=== PATIENT | male | born 1945 | race Caucasian/White ===

== ENCOUNTER → 2016-05-05 | Outpatient (CLI) | payer OTHER, BC ==
[~2016-05-05] MED LIST: ASPEC81 PO; B-COTAB53 PO; CALC-452 PO; CARV25TA2 PO; CILO100T PO; CLOP1TAB15 PO; COLE1TAB5 PO; DVN80 PO; HYG/25 PO; LSX20 PO; METF-384 PO; MULT1TAB18 PO; OMEP40CA PO; PANC6000 PO; PANT40TA PO; PRED1SUS3 OPL; RANI1TAB77 PO; SIMV20TA5 PO; VITAMIN D PO; VTMB12 PO
--- NOTE | 2016-05-05 15:02 | DIAGNOSTIC IMAGING REPORT ---
CT SCAN OF THE CHEST WITHOUT IV CONTRAST CLINICAL HISTORY: Pulmonary nodule. COMPARISON STUDY: Chest CT dated 11/04/2015. TECHNIQUE: CT scan of the thorax was performed from the thoracic inlet to the upper abdomen. Images are reviewed in the axial, sagittal, and coronal planes. IV contrast was not administered for this examination as per the referring clinician. CT DOSE: 281.37 mGycm FINDINGS: Thyroid: Imaged portions of the thyroid gland are normal in size and attenuation. Thoracic aorta: There is moderate atherosclerotic calcification of the thoracic aorta, which is normal in caliber and demonstrates standard 3-vessel arch anatomy. Heart: The heart is top normal in size and without pericardial effusion. The coronary arteries are densely calcified. The pulmonary trunk is normal in caliber. Lungs and pleural spaces: There is emphysema with biapical scarring. No airspace consolidation or pleural effusion is identified. There is a 7 mm focus of groundglass nodularity in the right middle lobe seen on image #179. This is more conspicuous than on the 11/04/2015 examination. No additional pulmonary nodule is seen. The trachea and central airways are clear. Mediastinum: There is no mediastinal lymphadenopathy. Radha: Not well assessed without IV contrast. Axillae: There is no axillary lymphadenopathy. Upper abdomen: There is a tiny hiatal hernia. Partially cholecystectomy clips are noted. Advanced atherosclerotic calcification is seen in the abdominal aorta. An aortic stent graft is partially visualized. Skeletal structures: The skeletal structures are osteopenic. Mild degenerative change is present throughout the thoracic spine. No lytic or blastic bony lesions are seen. A subcentimeter sclerotic focus in the body of T2 on image #41 is unchanged and likely represents a bone island. IMPRESSION: 1. Emphysema. 2. There is a 7 mm focus of groundglass nodularity in the right middle lobe, more conspicuous than on the 11/04/2015 examination. This may be on an inflammatory basis. Repeat chest CT in 6 months time is recommended for reassessment. 3. No additional pulmonary nodules are suspected. 4. No airspace consolidation or pleural effusion is identified. Electronically signed by: Zan Forte M.D. 05/05/2016 3:00 PM Dictated Date/Time: 05/05/2016 2:48 PM
== END | disposition home or self-care (01) ==
LOC: C.CTS 14:40
PROVIDERS: ATTEND Family Medicine
DX: R91.1 Solitary pulmonary nodule (principal); J43.9 Emphysema, unspecified

== ENCOUNTER → 2016-06-17 | Outpatient (CLI) | payer OTHER, BC ==
[2016-06-17 10:52] LABS: BASO % 0.5 %; BASO ABS # 0.03 K/uL (0-0.2); COMPLETE YES; EOS % 3.8 %; HEMATOCRIT 28.7 % (42-52); IG% 0.2 %; MEAN CELL VOLUME 88.9 fL (80-100); MEAN CORPUSCULAR HEMOGLOBIN 29.4 pg (25-34); MEAN CORPUSCULAR HGB CONC 33.1 g/dl (32-36); MEAN PLATELET VOLUME 10.1 fL (7.4-10.4); MONO % 10.5 %; PLATELET COUNT 263 K/uL (130-400); RED BLOOD COUNT 3.23 M/uL (4.7-6.1); WHITE BLOOD COUNT 6.36 K/uL (4.8-10.8)
== END | disposition home or self-care (01) ==
LOC: C.LABBC 09:06
PROVIDERS: ATTEND Family Medicine
DX: D64.9 Anemia, unspecified (principal)

== ENCOUNTER → 2016-07-20 | Outpatient (CLI) | payer OTHER, BC ==
[2016-07-20 11:15] LABS: BASO % 0.6 %; BASO ABS # 0.04 K/uL (0-0.2); COMPLETE YES; EOS % 4.7 %; HEMATOCRIT 29.3 % (42-52); IG% 0.2 %; LYMPH % 31.8 %; LYMPH ABS # 2.03 K/uL (1.2-3.4); MEAN CELL VOLUME 86.2 fL (80-100); MEAN CORPUSCULAR HEMOGLOBIN 28.5 pg (25-34); MEAN CORPUSCULAR HGB CONC 33.1 g/dl (32-36); MEAN PLATELET VOLUME 10.1 fL (7.4-10.4); MONO % 12.2 %; NEUT % 50.5 %; PLATELET COUNT 251 K/uL (130-400); WHITE BLOOD COUNT 6.38 K/uL (4.8-10.8)
[2016-07-20 11:34] LABS: FERRITIN 13.1 ng/ml (8.0-388.0)
== END | disposition home or self-care (01) ==
LOC: C.LABBC 08:40
PROVIDERS: ATTEND Family Medicine
DX: D64.9 Anemia, unspecified (principal)

== ENCOUNTER → 2016-08-05 | Day surgery (SDC) | payer OTHER, BC ==
[2016-08-03 10:25] VITALS: Ht 177.8 cm; Wt 74.1 kg
[~2016-08-05] VITALS: Ht 177.8 cm; Wt 74.1 kg
[~2016-08-05] MED LIST changes: +ATROPINE SULFATE 0.1 MG/ML 5ML SYR IV PRN; -CALC-452 PO; -CILO100T PO; +EpHEDrine SULFATE INJ 50 MG/ML AMP IV PRN; +LIDOCAINE HCL 2% 2 ML VIAL (20MG/ML) ONE; -LSX20 PO; +MIDAZOLAM HCL 1 MG/ML 2ML VIAL ONE; -OMEP40CA PO; +ONDANSETRON INJ 2 MG/ML 2 ML VIAL ONE; -PANC6000 PO; -PRED1SUS3 OPL; +PROPOFOL IV EMULSION 10 MG/ML 20 ML VIAL IV ONE; +SODIUM CHLORIDE 0.9% 500ML 500 ML IV ONE; -VTMB12 PO
--- NOTE | 2016-08-05 09:02 | Endo History and Physical ---
History & Physical Date of Service: Aug 05, 2016. Chief Complaint: Anemia and Manley's Esophagus Referring Physician: Frandy Hughes History of Present Illness 70 yo CM who presents for EGD and Colonoscopy secondary to anemia and Manley's Esophagus. Past Medical History Diabetes, Reflux, High Cholesterol, Heart Disease, Hypertension, COPD Past Surgical History Hx Cardiac Surgery: Yes (AAA REPAIR) Hx Internal Defibrillator: No Hx Pacemaker: No Hx Abdominal Surgery: Yes (CLAUDIA) Hx of Implantable Prosthesis: No Hx Post-Op Nausea and Vomiting: No Hx Cancer Surgery: No Hx Thoracic Surgery: No Hx Orthopedic: Yes (LT LEG SURGERY WITH CHAS S/P FRACTURES) Hx Urinary Tract Surgery: No Family History None Social History Smoking Status: Current Every Day Smoker Hx Substance Use: No Hx Alcohol Use: Yes (A COUPLE GLASSES WINE/NIGHT) Allergies Coded Allergies: No Known Allergies (Verified , 08/05/16) Current Medications Reported Home Medications Medications Dose Route/Sig Max Daily Dose Days Date Category Protonix (Pantoprazole Sodium) 40 Mg Tab 40 Mg PO QAM 08/03/16 Reported Plavix (Clopidogrel Bisulfate) 75 Mg Tab 75 Mg PO QAM 08/03/16 Reported Coreg (Carvedilol) 25 Mg Tab 0.5 Tab PO BID 08/03/16 Reported Hygroton (Chlorthalidone) 25 Mg Tab 25 Mg PO Q2D 08/03/16 Reported [Vitamin D] 600 Mg PO BID 08/03/16 Reported B Complex (B-Complex W/ Folic Acid) 1 Tab Tab 1 Tab PO QAM 08/03/16 Reported Colestipol Hcl 1 Gm Tab 1 Gm PO BID 03/19/15 Reported Diovan (Valsartan) 80 Mg Tab 0.5 Tab PO QPM 03/19/15 Reported Ranitidine [address] (Ranitidine HCl) 150 Mg Tab 150 Mg PO QPM 05/03/14 Reported One Daily For Men 50+ Adv (Multiple Vitamins W/ Minerals) 1 Tab Tab 1 Tab PO QPM 05/03/14 Reported Glucophage (Metformin Hcl) 1,000 Mg Tab 1,000 Mg PO BID 12/31/13 Reported Zocor (Simvastatin) 20 Mg Tab 20 Mg PO QPM 11/24/12 Reported Ecotrin Or Generic * (Aspirin) 81 Mg Ectab 81 Mg PO QPM 02/15/11 Reported Vital Signs Weight (Kilograms): 74.09 Height (Feet): 5 Height (Inches): 10 Physical Exam General Appearance: WD/WN, no apparent distress Respiratory/Chest: Auscultation: breath sounds normal Cardiovascular: Heart Auscultation: RRR Abdomen: Bowel Sounds: normal Inspection & Palpation: soft, non-distended, no tenderness, guarding & rebound Assessment and Plan Assessment: 70 yo CM who presents for EGD and Colonoscopy secondary to anemia and Manley's Esophagus. Plan: Proceed with EGD and colonoscopy.
--- NOTE | 2016-08-05 09:52 | Discharge Instructions ---
Endoscopy Patient Instructions Date / Procedure(s) Performed Aug 05, 2016. Colonoscopy, EGD Allergy Information Coded Allergies: No Known Allergies (Verified , 08/05/16) Discharge Date / Findings Aug 05, 2016. EGD: Manley's Esophagus s/p biopsies and Hiatal hernia Colonoscopy: Diverticulosis and Internal hemorrhoids Medication Instructions Stopped Medication(s): Plavix and metformin was stopped Tuesday OK to resume all medications today as prescribed Reported Home Medications Medications Dose Route/Sig Max Daily Dose Days Date Category Protonix (Pantoprazole Sodium) 40 Mg Tab 40 Mg PO QAM 08/03/16 Reported Plavix (Clopidogrel Bisulfate) 75 Mg Tab 75 Mg PO QAM 08/03/16 Reported Coreg (Carvedilol) 25 Mg Tab 0.5 Tab PO BID 08/03/16 Reported Hygroton (Chlorthalidone) 25 Mg Tab 25 Mg PO Q2D 08/03/16 Reported [Vitamin D] 600 Mg PO BID 08/03/16 Reported B Complex (B-Complex W/ Folic Acid) 1 Tab Tab 1 Tab PO QAM 08/03/16 Reported Colestipol Hcl 1 Gm Tab 1 Gm PO BID 03/19/15 Reported Diovan (Valsartan) 80 Mg Tab 0.5 Tab PO QPM 03/19/15 Reported Ranitidine [address] (Ranitidine HCl) 150 Mg Tab 150 Mg PO QPM 05/03/14 Reported One Daily For Men 50+ Adv (Multiple Vitamins W/ Minerals) 1 Tab Tab 1 Tab PO QPM 05/03/14 Reported Glucophage (Metformin Hcl) 1,000 Mg Tab 1,000 Mg PO BID 12/31/13 Reported Zocor (Simvastatin) 20 Mg Tab 20 Mg PO QPM 11/24/12 Reported Ecotrin Or Generic * (Aspirin) 81 Mg Ectab 81 Mg PO QPM 02/15/11 Reported Provider Instructions Activity Restrictions - No exercising or heavy lifting for 24 hours. - Do not drink alcohol the day of the procedure. - Do not drive a car or operate machinery until the day after the procedure. - Do not make any important decisions or sign important papers in 24 hours after the procedure. Following Day: - Return to full activity which may include returning to work/school. Diet Start your diet with liquids and light foods (jello, soup, juice, toast). Then eat your usual diet if not nauseated. Treatment For Common After Affects For mild abdominal pain, bloating, or excessive gas: - Rest - Eat lightly - Lie on right side Follow-Up Information Follow-up with Dr. Frandy Hughes as scheduled Anesthesia Information What You Should Know You have had a procedure that required some medicine to reduce anxiety and discomfort. This treatment is called moderate sedation. After receiving the treatment, you may be sleepy, but you will be able to breathe on your own. The effects of the treatment may last for several hours. Follow these instructions along with Activity/Diet recommendations noted above: * Do NOT do anything where dizziness or clumsiness would be dangerous. * Rest quietly at home today, then you can be up and about tomorrow. * Have a responsible person stay with you the rest of today. * You may have had an I.V. today. If so, you may take the dressing off later today. Recommendations Call your doctor if: * Trouble breathing * Continuous vomiting for more than 24 hours * Temperature above 101 degrees * Severe abdominal pain or bloating * Pain not relieved by pain medicine ordered * There is increased drainage or redness from any incision * A large amount of rectal bleeding greater than 2-3 tablespoons. (If you had a polyp/s removed or have hemorrhoids, a small amount of blood - from the rectum is to be expected.) * You have any unanswered questions or concerns. IN THE EVENT OF A SERIOUS EMERGENCY, GO TO THE NEAREST EMERGENCY ROOM Your discharge instructions were prepared by provider Simon Blanco. Patient Instructions Signature Page Guillermo Lindsay Patient (or Guardian) Signature/Date: I have read and understand the instructions given to me by my caregivers. Caregiver/RN/Doctor Signature/Date: The above-named patient and/or guardian has received patient instructions on this date. + Original Patient Signature Page (only) stays with chart. Please make copy for patient.
--- NOTE | 2016-08-05 09:55 | GI REPORT ---
Procedure Date: 08/05/2016 9:21 AM Procedure: Upper GI endoscopy Indications: Follow-up of Manley's esophagus Medicines: Monitored Anesthesia Care Complications: No immediate complications. Estimated Blood Loss: Estimated blood loss: none. Procedure: Pre-Anesthesia Assessment: - Prior to the procedure, a History and Physical was performed, and patient medications and allergies were reviewed. The patient's tolerance of previous anesthesia was also reviewed. The risks and benefits of the procedure and the sedation options and risks were discussed with the patient. All questions were answered, and informed consent was obtained. Prior Anticoagulants: The patient last took aspirin 1 day and Plavix (clopidogrel) 3 days prior to the procedure. ASA Grade Assessment: IV - A patient with severe systemic disease that is a constant threat to life. After reviewing the risks and benefits, the patient was deemed in satisfactory condition to undergo the procedure. After obtaining informed consent, the endoscope was passed under direct vision. Throughout the procedure, the patient's blood pressure, pulse, and oxygen saturations were monitored continuously. The Scope was introduced through the mouth, and advanced to the second part of duodenum. The upper GI endoscopy was accomplished without difficulty. The patient tolerated the procedure well. Findings: There were esophageal mucosal changes consistent with short-segment Manley's esophagus present at the gastroesophageal junction. The maximum longitudinal extent of these mucosal changes was 3 cm in length. Mucosa was biopsied with a cold forceps for histology. A small hiatus hernia was present. The examined duodenum was normal. Impression: - Esophageal mucosal changes consistent with short-segment Manley's esophagus. Biopsied. - Small hiatus hernia. - Normal examined duodenum. Recommendation: - Resume previous diet. - Continue present medications. - Await pathology results. - Return to GI clinic as previously scheduled. Simon Blanco DO 08/05/2016 9:54:39 AM This report has been signed electronically. Note Initiated On: 08/05/2016 9:21 AM I attest to the content of the Intraoperative Record and orders documented therein, exceptions below
--- NOTE | 2016-08-05 09:57 | GI REPORT ---
Procedure Date: 08/05/2016 9:21 AM Procedure: Colonoscopy Indications: Iron deficiency anemia Medicines: Monitored Anesthesia Care Complications: No immediate complications. Estimated Blood Loss: Estimated blood loss: none. Procedure: Pre-Anesthesia Assessment: - Prior to the procedure, a History and Physical was performed, and patient medications and allergies were reviewed. The patient's tolerance of previous anesthesia was also reviewed. The risks and benefits of the procedure and the sedation options and risks were discussed with the patient. All questions were answered, and informed consent was obtained. Prior Anticoagulants: The patient last took aspirin 1 day and Plavix (clopidogrel) 3 days prior to the procedure. ASA Grade Assessment: IV - A patient with severe systemic disease that is a constant threat to life. After reviewing the risks and benefits, the patient was deemed in satisfactory condition to undergo the procedure. After I obtained informed consent, the scope was passed under direct vision. Throughout the procedure, the patient's blood pressure, pulse, and oxygen saturations were monitored continuously. The scope was introduced through the anus and advanced to the terminal ileum. The colonoscopy was performed without difficulty. The patient tolerated the procedure well. The quality of the bowel preparation was good. The terminal ileum, ileocecal valve, appendiceal orifice, and rectum were photographed. Findings: Scattered small-mouthed diverticula were found in the entire colon. Non-bleeding internal hemorrhoids were found during retroflexion. The hemorrhoids were small. Impression: - Diverticulosis in the entire examined colon. - Non-bleeding internal hemorrhoids. - No specimens collected. Recommendation: - Resume previous diet. - Continue present medications. - Repeat colonoscopy in 5 years for surveillance. - Return to primary care physician as previously scheduled. Simon Blanco DO 08/05/2016 9:56:55 AM This report has been signed electronically. Note Initiated On: 08/05/2016 9:21 AM I attest to the content of the Intraoperative Record and orders documented therein, exceptions below
--- NOTE | 2016-08-05 10:01 | Anesthesiology Progress Note ---
Anesthesia Post Op Note Date & Time Aug 05, 2016 at 10:00 Vital Signs Pain Intensity: 0 Vital Signs Past 12 Hours Date Time Temp Pulse Resp B/P Pulse Ox O2 Delivery O2 Flow Rate FiO2 08/05/16 09:11 36.6 57 20 148/73 97 Room Air Notes Mental Status: alert / awake / arousable, participated in evaluation Pt Amnestic to Procedure: Yes Nausea / Vomiting: adequately controlled Pain: adequately controlled Airway Patency, RR, SpO2: stable & adequate BP & HR: stable & adequate Hydration State: stable & adequate Anesthetic Complications: no major complications apparent
[2016-08-05 10:21] VITALS: BP 134/61; PULSE 56; O2SAT 95
== END | disposition home or self-care (01) ==
LOC: C.GI 08:22
PROVIDERS: ATTEND Internal Medicine
DX: D50.9 Iron deficiency anemia, unspecified (principal); K57.30 Diverticulosis of large intestine without perforation or abscess without bleeding; K64.8 Other hemorrhoids; K22.70 Barrett's esophagus without dysplasia; K44.9 Diaphragmatic hernia without obstruction or gangrene; F17.210 Nicotine dependence, cigarettes, uncomplicated; Z79.02 Long term (current) use of antithrombotics/antiplatelets; Z79.899 Other long term (current) drug therapy; Z79.84 Long term (current) use of oral hypoglycemic drugs

== ENCOUNTER → 2016-10-14 | Outpatient (CLI) | payer OTHER, BC ==
[~2016-10-14] MED LIST changes: -ATROPINE SULFATE 0.1 MG/ML 5ML SYR IV PRN; -EpHEDrine SULFATE INJ 50 MG/ML AMP IV PRN; -LIDOCAINE HCL 2% 2 ML VIAL (20MG/ML) ONE; -MIDAZOLAM HCL 1 MG/ML 2ML VIAL ONE; -ONDANSETRON INJ 2 MG/ML 2 ML VIAL ONE; -PROPOFOL IV EMULSION 10 MG/ML 20 ML VIAL IV ONE; -SODIUM CHLORIDE 0.9% 500ML 500 ML IV ONE
[2016-10-14 13:22] LABS: BASO % 0.3 %; BASO ABS # 0.02 K/uL (0-0.2); EOS % 4.3 %; HEMATOCRIT 34.2 % (42-52); IG% 0.2 %; LYMPH % 39.5 %; LYMPH ABS # 2.45 K/uL (1.2-3.4); MEAN CELL VOLUME 93.2 fL (80-100); MEAN CORPUSCULAR HEMOGLOBIN 30.5 pg (25-34); MEAN CORPUSCULAR HGB CONC 32.7 g/dl (32-36); MEAN PLATELET VOLUME 10.7 fL (7.4-10.4); MONO % 9.2 %; NEUT % 46.5 %; PLATELET COUNT 192 K/uL (130-400); RED BLOOD COUNT 3.67 M/uL (4.7-6.1); WHITE BLOOD COUNT 6.21 K/uL (4.8-10.8)
[2016-10-14 13:42] LABS: ESTIMATED AVERAGE GLUCOSE 123 mg/dl; HA1C FLAG Normal (Normal)
[2016-10-14 13:49] LABS: ALT/SGPT 24 U/L (12-78); ANISOCYTOSIS PRESENT; AST/SGOT 22 U/L (15-37); BLOOD UREA NITROGEN 15 mg/dl (7-18); BUN/CREATININE RATIO 11.8 (10-20); CARBON DIOXIDE 28 mmol/L (21-32); CHLORIDE 102 mmol/L (98-107); COMPLETE YES; GLUCOSE 95 mg/dl (70-99); POTASSIUM 4.1 mmol/L (3.5-5.1); SODIUM 137 mmol/L (136-145)
[2016-10-14 13:57] LABS: ALB/GLOB RATIO 1.3 (0.9-2); ALKALINE PHOSPHATASE 58 U/L (45-117); TOTAL IRON BINDING CAPACITY 362 mcg/dl (250-450)
== END | disposition home or self-care (01) ==
LOC: C.LABBC 11:56
PROVIDERS: ATTEND Family Medicine
DX: D50.9 Iron deficiency anemia, unspecified (principal); I25.10 Atherosclerotic heart disease of native coronary artery without angina pectoris; E11.9 Type 2 diabetes mellitus without complications

== ENCOUNTER → 2016-11-08 | Outpatient (CLI) | payer OTHER, BC ==
--- NOTE | 2016-11-08 09:25 | DIAGNOSTIC IMAGING REPORT ---
(CHEST) THORAX WITHOUT CT DOSE: 337.06 mGy.cm HISTORY: R91.1 Solitary pulmonary nodule follow-up study. History of tobacco abuse. No new symptomatology reported. TECHNIQUE: Multiaxial CT images of the chest were performed without contrast. COMPARISON: CT chest 05/05/2016, 11/04/2015. FINDINGS: Thyroid is mildly enlarged without dominant nodule identified. No pathologic-appearing adenopathy of the chest. Heart is normal in size with three-vessel coronary arterial calcifications. There is moderate atherosclerosis of the aorta. Partially imaged aortic stent graft is noted with aneurysm of the abdominal aorta measuring up to 4.1 x 3.9 cm. Moderate upper lobe predominant centrilobular and paraseptal emphysematous changes are present. Biapical pleural parenchymal scarring is redemonstrated without pneumothorax or pleural effusion. No focal airspace consolidations are identified. There is mild bronchial wall thickening of the level lung bases suggesting background bronchitis. There is unchanged 5 mm noncalcified nodule within the apical segment right upper lobe which suggests pleural parenchymal scarring is unchanged. No new suspicious pulmonary nodules are identified. There is an unchanged ovoid 7 mm subsolid groundglass opacity of the lateral segment right middle lobe seen on image 185 of the axial series which appears unchanged. Prior cholecystectomy. Soft tissues are within normal limits. Multilevel endplate degenerative changes are seen throughout the spine with moderate bone demineralization. IMPRESSION: 1. Unchanged 7 mm groundglass nodule of the lateral segment right middle lobe. Follow-up according to the guidelines below recommended. 2. Stable appearance of moderate emphysema with biapical pleural parenchymal scarring and mild background bronchitis. 3. No new pulmonary nodules are identified. Please refer to below summary of Fleischner criteria recommendations for follow-up of incidental CT nodules (Aminata Coburn, Guidelines for management of small pulmonary nodules detected on CT scans: A statement from the Fleischner Society, Radiology 237: [phone]. Note: newly detected indeterminate nodule in persons 35 years of age or older. * Low risk patients: minimal or absent history of smoking and/or other known risk factors * high risk patients: history of smoking or of other known risk factors (e.g. first degree relative with lung cancer, or exposure to asbestos, radon, uranium) * if a nodule up to 8 mm is partly solid or is ground glass further follow-up is required after 24 months to exclude possible slow growing adenocarcinoma (VICKI) SUBSOLID NODULES Solitary pure ground-glass nodule * nodule size <6 mm - no CT follow-up required * nodule size >=6 mm - follow-up CT at 6-12 months, then every 2 years until 5 years The above report was generated using voice recognition software. It may contain grammatical, syntax or spelling errors. Electronically signed by: Chepe Jay M.D. 11/08/2016 9:24 AM Dictated Date/Time: 11/08/2016 9:14 AM
== END | disposition home or self-care (01) ==
LOC: C.CTS 08:50
PROVIDERS: ATTEND Physician Assistant Medical
DX: R91.1 Solitary pulmonary nodule (principal); R91.8 Other nonspecific abnormal finding of lung field

== ENCOUNTER → 2017-01-06 | Outpatient (CLI) | payer OTHER, BC ==
--- NOTE | 2017-01-06 10:13 | DIAGNOSTIC IMAGING REPORT ---
LEFT EXTREMITY NONVASCULAR LIMITED CLINICAL HISTORY: 71 years-old Male presenting with LOWER L LEG Swelling, lateral LEG Lump, r/o DVT. TECHNIQUE: Real-time grayscale ultrasound imaging of the left lateral calf was performed for a focused examination at the site of clinical interest. COMPARISON: Correlation made to Doppler ultrasound of the left lower extremity performed the same day. FINDINGS: At the site of clinical interest, no focal fluid collection or mass. No significant subcutaneous edema. No varicosities. IMPRESSION: 1. No sonographic abnormality in the left lateral calf at the site of clinical interest. Electronically signed by: Lester Manuel M.D. 01/06/2017 10:12 AM Dictated Date/Time: 01/06/2017 10:11 AM
--- NOTE | 2017-01-06 10:14 | DIAGNOSTIC IMAGING REPORT ---
LEFT LOWER EXTREMITY VENOUS DOPPLER CLINICAL HISTORY: Left leg swelling. COMPARISON STUDY: Left lower extremity venous Doppler December 31, 2013. TECHNIQUE: Sonography of the deep venous system of the left lower extremity was performed. Compression and augmentation were evaluated. FINDINGS: The left common femoral, superficial femoral and popliteal veins were compressible. Augmentation was normal. Flow was shown within the deep calf vessels. IMPRESSION: No evidence of deep venous thrombus within the left lower extremity. Electronically signed by: Sidney Smith M.D. 01/06/2017 10:13 AM Dictated Date/Time: 01/06/2017 10:12 AM
== END | disposition home or self-care (01) ==
LOC: C.ULTRBC 09:22
PROVIDERS: ATTEND Physician Assistant Medical
DX: R22.42 Localized swelling, mass and lump, left lower limb (principal)

== ENCOUNTER → 2017-04-26 | Outpatient (CLI) | payer OTHER, BC ==
[2017-04-26 13:09] LABS: BASO % 0.4 %; BASO ABS # 0.02 K/uL (0-0.2); EOS % 2.6 %; EOS ABS # 0.15 K/uL (0-0.5); HEMATOCRIT 36.9 % (42-52); IG# 0.01 K/uL (0.00-0.02); LYMPH % 33.6 %; LYMPH ABS # 1.92 K/uL (1.2-3.4); MEAN CELL VOLUME 100.3 fL (80-100); MEAN CORPUSCULAR HEMOGLOBIN 35.3 pg (25-34); MEAN CORPUSCULAR HGB CONC 35.2 g/dl (32-36); MEAN PLATELET VOLUME 11.1 fL (7.4-10.4); MONO % 8.9 %; MONO ABS # 0.51 K/uL (0.11-0.59); NEUT % 54.3 %; PLATELET COUNT 172 K/uL (130-400); RED CELL DISTRIBUTION WIDTH CV 14.4 % (11.5-14.5); RED CELL DISTRIBUTION WIDTH SD 52.8 fL (36.4-46.3); WHITE BLOOD COUNT 5.71 K/uL (4.8-10.8)
[2017-04-26 15:17] LABS: AST/SGOT 23 U/L (15-37); BLOOD UREA NITROGEN 17 mg/dl (7-18); CALCIUM 9.5 mg/dl (8.5-10.1); CARBON DIOXIDE 26 mmol/L (21-32); CHOLESTEROL 107 mg/dl (0-200); CREATININE 1.11 mg/dl (0.60-1.40); GLUCOSE 114 mg/dl (70-99); LDL CHOLESTEROL CALCULATED 29 mg/dl; SODIUM 135 mmol/L (136-145)
[2017-04-26 15:22] LABS: ALKALINE PHOSPHATASE 67 U/L (45-117); ALT/SGPT 30 U/L (12-78); TOTAL PROTEIN 7.3 gm/dl (6.4-8.2); TRANSFERRIN 274 mg/dl (200-360)
== END | disposition home or self-care (01) ==
LOC: C.LABBC 11:52
PROVIDERS: ATTEND Physician Assistant Medical
DX: K21.9 Gastro-esophageal reflux disease without esophagitis (principal); K86.1 Other chronic pancreatitis; I10 Essential (primary) hypertension; I25.10 Atherosclerotic heart disease of native coronary artery without angina pectoris; D50.9 Iron deficiency anemia, unspecified; E11.9 Type 2 diabetes mellitus without complications

== ENCOUNTER → 2017-05-11 | Outpatient (CLI) | payer OTHER, BC ==
--- NOTE | 2017-05-11 10:28 | DIAGNOSTIC IMAGING REPORT ---
(CHEST) THORAX WITHOUT CT DOSE: 235.10 mGycm CLINICAL HISTORY: 71 years-old Male with R91.1 Solitary pulmonary [id number]. Follow-up study to assess 7 mm ground glass nodule of the lateral segment right middle lobe. TECHNIQUE: Multiaxial CT images of the chest were performed without contrast. A dose lowering technique was utilized adhering to the principles of ALARA. COMPARISON: CT chest 11/08/2016, 11/04/2015, CT abdomen and pelvis 04/29/2014, 02/15/2011. FINDINGS: No dominant thyroid nodule or pathologic adenopathy identified. Heart is normal in size with coronary arterial disease. Calcifications of the aortic annulus are noted with moderate atherosclerosis of the thoracic aorta and proximal great vessels. Mild tortuosity of the descending thoracic aorta. Moderate upper lobe predominant emphysema with mild biapical pleural-parenchymal scarring. Subcentimeter solid pulmonary nodules of the apical segment right upper lobe are again seen, largest of which measures up to 5 mm on image 44 series 4, unchanged. 7 mm groundglass nodule of the lateral segment right middle lobe is again noted which appears stable dating back to 11/04/2015. Additionally, there is a 6 mm ground glass nodule right lower lobe seen on image 162 series 4 which in retrospect is unchanged from 11/08/2016 study and appears slightly more apparent than it was on 11/04/2015. 5 mm solid noncalcified nodule of the right lower lobe as seen on image 239 series 4 which is stable dating back to at least 04/29/2014 compatible with benign etiology. No new or enlarging pulmonary nodules identified. Central airways are patent. No acute abnormality of the imaged upper abdomen. Mild fatty infiltration of the liver. Bones appear intact. IMPRESSION: 1. No acute intrathoracic abnormality identified. 2. Unchanged 7 mm groundglass nodule of the lateral segment right middle lobe appears stable dating back to 11/04/2015. Additionally, there is a 6 mm groundglass nodule of the right lower lobe as above. Fleischner follow-up guidelines provided below. 3. Moderate emphysema with biapical pleural-parenchymal scarring. Please refer to below summary of Fleischner criteria recommendations for follow-up of incidental CT nodules (Aminata Coburn, Guidelines for management of small pulmonary nodules detected on CT scans: A statement from the Fleischner Society, Radiology 237: [phone].) SOLID NODULES Solitary nodule size: <6 mm * Low risk patients: no follow-up needed * high risk patients: optional CT at 12 months Solitary nodule size: 6-8 mm * Low risk patients: follow-up at 6-12 months, then consider further follow-up at 18-24 months * high risk patients: initial follow-up CT at 6-12 months and then at 18-24 months if no change Solitary nodule size: >8 mm * either low or high risk patients - consider follow-up CT at 3 months, and/or CT-PET, and/or biopsy Multiple nodules size: <6 mm * Low risk patients: no routine follow-up * high risk patients: optional CT at 12 months Multiple nodules size: 6-8 mm * Low risk patients: follow-up at 3-6 months, then consider further follow-up at 18-24 months * high risk patients: follow-up at 3-6 months, then at 18-24 months if no change Multiple nodules size: >8 mm * Low risk patients: follow-up at 3-6 months, then consider further follow-up at 18-24 months * high risk patients: follow-up at 3-6 months, then at 18-24 months if no change Note: newly detected indeterminate nodule in persons 35 years of age or older. * Low risk patients: minimal or absent history of smoking and/or other known risk factors * high risk patients: history of smoking or of other known risk factors (e.g. first degree relative with lung cancer, or exposure to asbestos, radon, uranium) * if a nodule up to 8 mm is partly solid or is ground glass further follow-up is required after 24 months to exclude possible slow growing adenocarcinoma (VICKI) SUBSOLID NODULES Solitary pure ground-glass nodule * nodule size <6 mm - no CT follow-up required * nodule size >=6 mm - follow-up CT at 6-12 months, then every 2 years until 5 years Solitary part-solid nodule * nodule size <6 mm - no CT follow-up required * nodule size >=6 mm - follow-up CT at 3-6 months. If unchanged, and solid component remains <6 mm, then annual follow-up for 5 years Multiple subsolid nodules * nodule size <6 mm - follow-up CT at 3-6 months, consider further follow-up at 2 and 4 years if stable * nodule size >=6 mm - follow-up CT at 3-6 months, subsequent management based on the most suspicious nodule(s) The above report was generated using voice recognition software. It may contain grammatical, syntax or spelling errors. Electronically signed by: Chepe Jay M.D. 05/11/2017 10:27 AM Dictated Date/Time: 05/11/2017 10:16 AM
== END | disposition home or self-care (01) ==
LOC: C.CTS 09:44
PROVIDERS: ATTEND Physician Assistant Medical
DX: R91.1 Solitary pulmonary nodule (principal)

== ENCOUNTER → 2017-05-17 | Outpatient (CLI) | payer OTHER, BC ==
--- NOTE | 2017-05-18 05:37 | PAP/PSG TECHNICIAN REPORT ---
[facility] Receiving Team Member Polysomnogram Report Study name: None Report date: 05/18/2017 Study date: 05/17/2017 Referring Physician: Juve Monzon M.D. Name: ROSIO LINDSAY Interpreting Physician: Juve Monzon M.D. Date of : 1945 Receiving Team Member: Lorna Covarrbuias RPS. Sex: Male Age: 71 StudyType: PSG Weight: 168 lbs Height: 71 years, Height 5' 10" BMI: 24.1 Medications: Pantoprazole Sodium 40 mg, Atorvastatin 40 mg, Colestipol 1 gm, Valsartan 80 mg, Aspirin 81 mg, B-Complex, Calcium 600-200 mg, One Daily, Carvedilol 25 mg, Chlorthalidone 25 mg, Ranitidine 150 mg, Metformin 1000 mg, Ferrous Sulfate 325 mg, Plavix 75 mg Patient History 71 yr. old male here for a possible split night sleep study, Patient had a positive PSG with an AHI of 34 in 2016 but was never treated. Parameters Monitored NPSG: E1-M2, E2-M1, Fp1-M2, Fp2-M1, F3-M2, F4-M2, F4-M1, C3-M2, C4-M2, C4-M1, O1-M2, O2-M2, O2-M1, T3-M2, T4-M1, P3-M2, P4-M1, CHIN1, CHIN2, HR, EKG, Legs, PFLOW, SNOR, FLOW, CFLOW, Tidal Volume, THOR, ABDO, SpO2, PLTH, CPRESS, ETCO2 Wave, ETCO2, pH Sleep Architecture Sleep Stages Time at Lights Off 9:25:10 PM STAGES Time (min.) TST (%) Time at Lights On 5:04:40 AM Wake 73.0 -- Total Recording Time (TRT) 459.50 min. N1 47.0 12 Total Sleep Period (TSP) 423.0 min. N2 184.5 48 Total Sleep Time (TST) 386.5min. N3 43.0 11 Awake Time 73.0 min. REM 112.0 29 Wake after Sleep Onset 48.0 min. Sleep Efficiency (SE) 84 % Sleep Onset Latency (SIENA) 25.0 min. Number of Stage 1 Shifts None Awakenings 30 Stage Changes 130 Number of REM periods 12 REM 112.0 29 REM Latency 102.0 min. NREM 274.5 71 Body Position Analysis Supine Right Left Side Prone Vertical Total Sleep Time (min.) 74.2 0.0 343.5 343.50 0.0 0.8 Total Sleep Time (%) 11% 0% 89% 89 0% N/A% Total Sleep Time REM (min.) 0.0 0.0 112.0 None 0.0 0.0 Total Sleep Time NREM (min.) 43.0 0.0 231.5 None 0.0 0.0 Intermittent Wake (min.) 31.2 0.0 41.0 None 0.0 0.8 Total Sleep Period (%) 12% None None None None None Arousals Myoclonus (PLM) * Events Count Index Events Count Index Spontaneous 9 1 Events Awake (PLMW) 89 73.2 Respiratory 4 0.6 Events Asleep w/ Arousal (PLMA) 95 14.7 PLM 91 15 Events Asleep w/o Arousal (PLMS) 423 65.7 Snoring 21 3 Total Asleep 518 80.4 Total 125 19 Total 607 79 Respiratory Analysis * CA OA MA CH H RERA Total Count 0 0 0 0 21 0 21 Index 0.0 0.0 0.0 0 3.3 0 3.3 Mean Duration 0.0 0.0 0.0 0.00 22.1 0.0 22.1 Longest Duration 0.0 0.0 0.0 0.00 0.0 0.0 37.3 Respiratory Event Summary Total Supine ~Supine Right Left Prone REM NREM Apneas Count 0 0 0 N/A 0 N/A 0 0 Index 0.0 0 0 N/A 0.0 N/A 0 0 Hypopneas (4% Desat) Count 21 20 1 N/A 1 N/A 0 21 Index 3.3 27.9 0 N/A 0.2 N/A 0.0 4.6 Apneas & All Hypopneas Count 21 20 1 N/A 1 N/A 0 21 Index 3.3 28 0 N/A 0 N/A 0.0 4.6 Respiratory Events (Lpn Or Medical Assistant+All Hyp+RERA) Count 21 20 1 N/A 1 N/A 0 21 Index 3.3 28 0 N/A 0.2 N/A 0.0 4.6 Respiratory Related Arousal Count 4 20 0 N/A 0 N/A 0 4 Index 0.6 6 0 N/A 0 N/A 0 1 Snoring Analysis Supine Right Left Prone REM NREM Total Snore duration 14.2 min Snores count 81 N/A 357 N/A 222 216 438 Snore mean duration 1.9 Sec Snores index 113 N/A 62 N/A 118.9 47.2 68.0 TST with snoring (%) 3.7% Desaturation Event Summary: Minimum %SpO2 Event Count Mean/Min/Max Duration(sec.) Desaturation Index % Time In Bed > 90 42 25.9 / 9.0 / 60.0 7.5 74.3 86 - 90 3 15.5 / 9.0 / 22.5 1.6 25.7 81 - 85 0 N/A 0.0 0.0 76 - 80 0 N/A 0.0 0.0 71 - 75 0 N/A 0.0 0.0 66 - 70 0 N/A 0.0 0.0 61 - 65 0 N/A 0.0 0.0 56 - 60 0 N/A 0.0 0.0 51 - 55 0 N/A 0.0 0.0 < 50 0 N/A 0.0 0.0 Total REM NREM Awake <50% 0.0 min. 0.0 min. 0.0 min. 0.0 min. 51 - 60% 0.0 min. 0.0 min. 0.0 min. 0.0 min. 61 - 70% 0.0 min. 0.0 min. 0.0 min. 0.0 min. 71 - 80% 0.0 min. 0.0 min. 0.0 min. 0.0 min. 81 - 90% 116.1 min. 3.1 min. 98.5 min. 14.5 min. 91 - 100% 336.4 min. 108.9 min. 176.0 min. 51.6 min. Average 92 93 92 92 Minimum SpO2 86 90 86 86 Desaturation Event Index 5.5 0.0 6.3 14.0 # Desat. Events below 89% 14 N/A 12 2 Time(%) with Saturation below 89% 1.4 0.0 1.2 0.2 Time(min.) with Saturation below 89% 6.1 0.0 5.2 0.9 Time (mins) REM (mins) NREM (mins) % of TST SpO2 Below 90% 26 N/A N26 10.0 SpO2 Below 88% 5 0 0 0 Heart Rate Analysis Min (bpm) Max (bpm) Average (bpm) Awake 48 72 56 NREM 47 65 52 REM 48 61 53 Overall 47 65 53 Supplemental O2 Values Minimum O2 level: None Value Start Time End Time Receiving Team Member Comments MR. Lindsay slept in the right and supine positions. No cardiac arrhythmia. Frequent PLMs noted. No bruxism noted. Snoring was noted and scored as a 2 on a scale of 0 through 5. (0=no snoring, 5=snoring loud enough to be heard through a closed door or down the [address] way) MR. Lindsay did not wake to use the restroom during the night. MR. Lindsay stated, that was a normal night. The final report will be interpreted and signed by a sleep physician. The completed physician report will then be placed in the patient medical record. Therapy (cm H2O) 0 TIB (min.) 459.5 TST (min.) 386.5 Sleep Onset (min.) 25.0 REM Onset From Sleep (min.) 102.0 Sleep Efficiency % 84 Wakefulness (%) 16 Wakefulness (min.) 73.0 NREM 1 (%) 12 NREM 1 (min.) 47.0 NREM 2 (%) 48 NREM 2 (min.) 184.5 NREM 3 (%) 11 NREM 3 (min.) 43.0 REM (%) 29 REM (min.) 112.0 # Arousals 125 Arousal Index 19 # Snore 438 Snore Index 68.0 AHI 3.3 AHI Supine 28 AHI Non-Supine 0 NREM AHI 4.6 REM AHI 0.0 RDI 3.3 # Obstructive Apnea 0 # Central Apnea 0 # Mixed Apnea 0 # Hypopneas 21 RERAs 0 Total Respiratory Events 24 Time Below SpO2 89% (min.) 5.2 Mean NREM SpO2 (%) 92 Mean REM SpO2 (%) 93 Mean Sleep SpO2 (%) 92 Min NREM SpO2 (%) 86 Min REM SpO2 (%) 90 Position Supine (min.) 74.2 Position Non-supine (min.) 343.5 LM Index Sleep 80.4 LM Index NREM 89.6 LM Index REM 57.9 Mean Heart Rate (bpm) 53 Min Heart Rate (bpm) 47
--- NOTE | 2017-05-20 17:31 | POLYSOMNOGRAPH REPORT ---
CLINICAL DATA: A 71-year-old male with BMI of [address] Hughes for repeat sleep study. He had a sleep study done in 2016, which showed an AHI of 34, but was never treated. SLEEP ARCHITECTURE: Total sleep period was 422 minutes. Total sleep time was 386.5 minutes divided between 274.5 minutes of non-REM sleep and 112 minutes of REM sleep. Sleep onset latency 25 minutes. REM latency was 102 minutes. Sleep efficiency was 84%. Wake after sleep onset was 48 minutes. Sleep consisted of stage N1 12%, stage N2 48%, stage N3 11%, and REM 29%. AROUSAL DATA: 125 arousals were recorded for an index of 19 per hour. PLM DATA: Severe PLMD was noted. There were 518 limb movements during sleep noted for an index of 80.4 per hour with arousal index of 14.7 per hour. RESPIRATORY DATA: There was no evidence of clinically significant sleep apnea seen. The AHI was 3.3. There were 21 hypopneic episodes with a mean duration of 22 seconds. OXIMETRY DATA: No significant hypoxemia was seen. Oxygen kiersten was 86% during non-REM sleep. The mean saturation was 92%. Time below 88% was 5 minutes. EKG: Heart rates ranged from 47-65 beats per minute. No arrhythmias were noted. CREDIT REVIEW ANALYST'S COMMENTS: The patient slept in the right and supine positions. No bruxism was noted. Snoring was mild, rated 2 on a scale of 1 through 5. Frequent PLMs were seen. IMPRESSION: 1. No evidence of clinically significant sleep apnea/hypopnea. 2. Frequent limb movements during sleep, possibly consistent with periodic limb movement disorder of sleep (PLMD). RECOMMENDATIONS: There was nothing on the current study to suggest the need for CPAP or an oral appliance. If the patient continues to have sleep complaints or issues, evaluation for causes and treatment for PLMD may be necessary. Clinical correlation is needed. JOHNNY
== END | disposition home or self-care (01) ==
LOC: C.NEUR 20:00
PROVIDERS: ATTEND Internal Medicine
DX: G47.33 Obstructive sleep apnea (adult) (pediatric) (principal)

== ENCOUNTER → 2017-11-30 | Outpatient (CLI) | payer OTHER, BC ==
--- NOTE | 2017-11-30 09:12 | DIAGNOSTIC IMAGING REPORT ---
DUPLEX RENAL ARTERY CLINICAL HISTORY: 71 years-old Male presenting with RENAL ART STENOSIS. TECHNIQUE: Real-time grayscale and color and spectral Doppler ultrasound imaging of the kidneys was performed. COMPARISON: CT from 08/12/2015. FINDINGS: Right kidney: Normal echogenicity of renal parenchyma. Right kidney measures 10.7 cm. No hydronephrosis. No convincing evidence of calculus or mass. Intrarenal resistive indices range from 0.59 to 0.72. Normal intrarenal arterial waveforms. Renal artery patent with peak systolic velocity 95 cm/s proximally, 93 cm/s in the midportion, and 78 cm/s distally. Renal vein patent. Left kidney: Normal echogenicity of renal parenchyma. Left kidney measures 11.2 cm. No hydronephrosis. No convincing evidence of calculus or mass. Intrarenal resistive indices range from 0.55 to 0.68. Normal intrarenal arterial waveforms. Renal artery patent with peak systolic velocity 96 cm/s proximally, 92 cm/s in the midportion, and 70 cm/s distally. Renal vein patent. Abdominal aorta: Aneurysmal dilatation of the distal abdominal aorta, which measures 5.1 by 4.4 cm. Endovascular stent within the aorta suggested. Peak systolic velocity 73 cm/s. Ratio of right renal artery PSV/aortic PSV: 1.3. Ratio of left renal artery PSV/aortic PSV: 1.3. Other: None. Reference ranges: Normal main renal artery peak systolic velocity less than 180 cm/s. Ratio of renal artery PSV to aortic PSV less than 3.5 equates to normal or less than 60% stenosis. Only one of the two criteria listed needs to be met for diagnosis. IMPRESSION: 1. No evidence of renal artery stenosis. 2. Intrarenal abdominal aortic aneurysm measuring 5.1 x 4.4 cm. This is unchanged from prior CT. The presence of a potential aortic stent is not well characterized. Electronically signed by: Lester Manuel M.D. 11/30/2017 9:10 AM Dictated Date/Time: 11/30/2017 9:06 AM
[2017-11-30 09:57] LABS: BLOOD UREA NITROGEN 13 mg/dl (7-18); CALCIUM 8.7 mg/dl (8.5-10.1); CARBON DIOXIDE 30 mmol/L (21-32); CREATININE 1.08 mg/dl (0.60-1.40); GLUCOSE 101 mg/dl (70-99); POTASSIUM 4.1 mmol/L (3.5-5.1); SODIUM 127 mmol/L (136-145)
== END | disposition home or self-care (01) ==
LOC: C.ULTR 07:51
PROVIDERS: ATTEND Physician Assistant Medical
DX: I70.1 Atherosclerosis of renal artery (principal); R09.89 Other specified symptoms and signs involving the circulatory and respiratory systems; I71.4 Abdominal aortic aneurysm, without rupture

== ENCOUNTER → 2017-12-12 | Outpatient (CLI) | payer OTHER, BC ==
--- NOTE | 2017-12-12 13:15 | DIAGNOSTIC IMAGING REPORT ---
(CHEST) THORAX WITHOUT CLINICAL HISTORY: 71 years-old Male presenting with R91.1 Solitary pulmonary nodule. TECHNIQUE: Multidetector CT imaging of the chest was performed without the use of intravenous contrast. IV contrast: None. A dose lowering technique was used consistent with the principles of ALARA (as low as reasonably achievable). COMPARISON: 05/11/2017. CT DOSE (mGy.cm): The estimated cumulative dose is 278.55 mGy.cm. FINDINGS: Pony Ride Attendant topogram: Hyperinflation. On soft tissue windows, normal thyroid and thoracic inlet. No axillary, supraclavicular, or mediastinal lymphadenopathy. Evaluation of the patric limited without intravenous contrast. Atherosclerosis of the aorta. Normal heart size. Coronary artery calcification. No pericardial or pleural effusion. Hepatic steatosis. On lung windows, stable 5 mm nodule at the medial basal right lower lobe (series 4 image 244), unchanged since 2015. Solid right apical 5 mm nodule (series 4 image 48), unchanged. This may be part of the adjacent scarring noted at the right apex. Subsolid nodule in the lateral segment of the right middle lobe measures 10 mm and demonstrates internal cystic or emphysematous change (series 4 image 180). Subsolid 6 mm nodule in the superior segment of the right lower lobe (series 4 image 164), unchanged Few punctate calcified granulomata. Pleural parenchymal scarring at the apices greater on the right. Multiple punctate solid nodules bilaterally unchanged. Mild apical predominant centrilobular emphysema. Mild diffuse bronchial wall thickening. Central airways patent. No pneumothorax. On bone windows, degenerative changes of the spine. IMPRESSION: 1. Slight interval increase in size of the groundglass nodule with either internal cystic or emphysematous change in the right middle lobe. This now measures 10 mm. Follow-up per Paul Society 2017 recommendations below. "If a nodule up to 8 mm is partly solid or is ground glass, further follow-up is required after 24 months to exclude possible slow growing adenocarcinoma." 2. Multiple additional solid pulmonary nodules stable from prior, the majority of which are punctate in size. 3. Smoking related lung injury. 4. Hepatic steatosis. Please refer to below summary of Fleischner Society 2017 recommendations for follow-up of incidental CT nodules (H Irish et al. Guidelines for management of incidental pulmonary nodules detected on CT images: From the Fleischner Society 2017. Radiology 2017; 284: 228-243.) SOLID NODULES Single nodule; size < 6 mm * Low risk patients: No routine follow-up * High risk patients: Optional CT at 12 months Single nodule; size 6-8 mm * Low risk patients: CT at 6-12 months, then consider CT at 18-24 months * High risk patients: CT at 6-12 months, then at 18-24 months Single nodule; size > 8 mm * Either low or high risk patients: Considered CT at 3 months, PET/CT, or tissue sampling Multiple nodules; size < 6 mm * Low risk patients: No routine follow up * High risk patients: Optional CT at 12 months Multiple nodules; size 6-8 mm * Low risk patients: CT at 3-6 months, then consider CT at 18-24 months * High risk patients: CT at 3-6 months, then at 18-24 months Multiple nodules; size > 8 mm * Low risk patients: CT at 3-6 months, then consider at 18-24 months * High risk patients: CT at 3-6 months, then at 18-24 months SUBSOLID NODULES Single ground-glass nodule * Nodule size < 6 mm: No routine follow-up * Nodule size > or = 6 mm: CT at 6-12 months to confirm persistence, then CT every 2 years until 5 years Single part-solid nodule * Nodule size < 6 mm: No routine follow-up * Nodules size > or = 6 mm: CT at 3-6 months to confirm persistence. If unchanged and solid component remains < 6 mm, annual CT should be performed for 5 years Multiple nodules * Nodule size < 6 mm: CT at 3-6 months. If stable, consider CT at 2 and 4 years. * Nodules size > or = 6 mm: CT at 3-6 months. Subsequent management based on the most suspicious nodule(s) NOTE: 1) These guidelines apply to incidental nodules. These guidelines do NOT apply to patients younger than 35 years, immunocompromised patients, or patients with cancer. 2) Risk categories: * Low risk patients: Minimal or absent history of smoking and/or other known risk factors * High risk patients: History of smoking, exposure to other carcinogens, emphysema, fibrosis, upper lobe location, family history of lung cancer, etc. 3) If a nodule up to 8 mm is partly solid or is ground glass, further follow-up is required after 24 months to exclude possible slow growing adenocarcinoma. Electronically signed by: Lester Manuel M.D. 12/12/2017 1:14 PM Dictated Date/Time: 12/12/2017 1:01 PM
== END | disposition home or self-care (01) ==
LOC: C.CTS 12:51
PROVIDERS: ATTEND Internal Medicine
DX: R91.1 Solitary pulmonary nodule (principal); K76.0 Fatty (change of) liver, not elsewhere classified

== ENCOUNTER 2018-12-12 08:56 | Inpatient (IN) ==
--- NOTE | 2018-11-20 16:26 | PAT Medication Instructions ---
Medication Instructions Date of Service November 20, 2018 Home Medications Medication Instructions Recorded metformin 1,000 mg tablet 500 mg PO BID #90 tab 10/24/18 Multivitamin 50 Plus 1 tab PO QPM carvedilol [Coreg] 12.5 mg PO BID chlorthalidone 25 mg PO QAM cholecalciferol (vitamin D3) 1,000 unit PO BID clopidogrel [Plavix] 75 mg PO QAM colestipol 1 g PO BID pantoprazole [Protonix] 40 mg PO QAM ranitidine HCl 150 mg PO QPM atorvastatin 40 mg PO PM ferrous sulfate 325 mg PO QAM losartan 50 mg PO QPM metformin 1,000 mg tablet 500 mg PO BID aspirin [Aspirin Low Dose] 81 mg PO QPM ASK your prescriber and surgeon clopidogrel [Plavix] 75 mg PO QAM aspirin [Aspirin Low Dose] 81 mg PO QPM STOP taking 48 hours before surgery colestipol 1 g PO BID (do not take the day of surgery or the day before) DO NOT take the morning of surgery chlorthalidone 25 mg PO QAM cholecalciferol (vitamin D3) 1,000 unit PO BID pantoprazole [Protonix] 40 mg PO QAM ferrous sulfate 325 mg PO QAM metformin 1,000 mg tablet 500 mg PO BID Take morning of surgery With a small sip of water, OTHERWISE NOTHING TO EAT OR DRINK AFTER MIDNIGHT: carvedilol [Coreg] 12.5 mg PO BID pantoprazole [Protonix] 40 mg PO QAM Take evening before surgery Multivitamin 50 Plus 1 tab PO QPM carvedilol [Coreg] 12.5 mg PO BID cholecalciferol (vitamin D3) 1,000 unit PO BID ranitidine HCl 150 mg PO QPM atorvastatin 40 mg PO PM losartan 50 mg PO QPM metformin 1,000 mg tablet 500 mg PO BID Other Notes If you have any questions please call us at [phone] or [phone] or [phone] or [phone]
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
[2018-11-21 10:57] LABS: Basophils # (auto) 0.02 K/uL (0-0.2); Basophils % (auto) 0.4 %; Eosinophils # (auto) 0.13 K/uL (0-0.5); Eosinophils % (auto) 2.7 %; Hematocrit (blood only) 35.5 % (42-52); Hemoglobin 12.6 g/dL (14.0-18.0); Lymphocytes # (auto) 1.37 K/uL (1.2-3.4); Lymphocytes % (auto) 28.4 %; Mean Corpuscular Hgb Conc 35.5 g/dL (32-36); Mean Corpuscular Volume 99.2 fL (80-100); Mean Platelet Volume 10.2 fL (7.4-10.4); Monocytes # (auto) 0.69 K/uL (0.11-0.59); Monocytes % (auto) 14.3 %; Neutrophils # (auto) 2.62 K/uL (1.4-6.5); Neutrophils % (auto) 54.2 %; Platelet Count 180 K/uL (130-400); RDW Coefficient of Variation 13.7 % (11.5-14.5); RDW Standard Deviation 49.8 fL (36.4-46.3); Red Blood Count 3.58 M/uL (4.7-6.1); White Blood Count 4.83 K/uL (4.8-10.8)
[2018-11-21 11:05] LABS: BUN Creatinine Ratio 12.6 (10-20); Calcium 9.2 mg/dl (8.5-10.1); Est GFR (African American) 71.8; Est GFR (Non-African American) 61.9; Potassium 3.8 mmol/L (3.5-5.1)
[2018-11-21 11:18] LABS: INR 1.1 (0.9-1.1); Partial Thromboplastin Ratio 1.1; Partial Thromboplastin Time 30.4 Seconds (21.0-31.0)
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
[~2018-12-12 08:56] MED LIST changes: -ASPEC81 PO; -B-COTAB53 PO; -CARV25TA2 PO; +CEFAZOLIN 1000MG 1,000 MG/7.5 ML SYR IV SCH; -CLOP1TAB15 PO; -COLE1TAB5 PO; -DVN80 PO; -HYG/25 PO; +LR 15ML/HR IV SCH; -METF-384 PO; -MULT1TAB18 PO; -PANT40TA PO; -RANI1TAB77 PO; -SIMV20TA5 PO; -VITAMIN D PO
[2018-12-12] MEDS ORDERED: PROMETHAZINE HCL 12.5 MG in SODIUM CHLORIDE 0.9% 50 ML IV PRN (11:34)
[2018-12-12] MEDS ORDERED: ePHEDrine sulfate 50 MG/ML AMP IV PRN (11:34)
[2018-12-12] MEDS ORDERED: HYDROmorphone INJ 1 MG/ML SYRINGE IV PRN (11:34)
[2018-12-12] MEDS ORDERED: ATROPINE SULFATE 0.1 MG/ML 10ML SYR IV PRN (11:34)
[2018-12-12] MEDS ORDERED: METOCLOPRAMIDE HCL INJ 5 MG/ML 2 ML VIAL IV PRN (11:34)
[2018-12-12] MEDS ORDERED: ONDANSETRON INJ 2 MG/ML 2 ML VIAL IV PRN ×2 (11:34→18:45)
--- NOTE | 2018-12-12 11:43 | History & Physical Bridge Note ---
Date of Service December 12, 2018 History & Physical Bridge Note I have examined the patient, reviewed the History & Physical and in the interval since the performance of the History & Physical I have noted the following changes of clinical significance: no changes noted
[2018-12-12] MEDS ORDERED: PAPAVERINE HCL INJ 30 MG/ML 2 ML VIAL ONE (11:50)
[2018-12-12] MEDS ORDERED: HEPARIN (PORCINE) 1000 UNIT/ML 10 ML (CATH LAB USE ONLY) ONE (11:50)
[2018-12-12] MEDS ORDERED: LIDOCAINE HCL 1% 20 ML VIAL ONE ×2 (11:50→11:53)
[2018-12-12] MEDS ORDERED: IODIXANOL (VISIPAQUE) 270 MG/ML 50ML ONE ×2 (11:51→11:54)
[2018-12-12] MEDS ORDERED: BUPIVACAINE/EPINEPHRINE 0.5% MPF 1:200,000 30 ML VIAL ONE (11:51)
[2018-12-12] MEDS ORDERED: GELATIN SPONGE SZ 100 ONE ×2 (11:51→12:13)
[2018-12-12] MEDS ORDERED: THROMBIN 5000 UNITS KIT ONE (11:51)
[2018-12-12] MEDS ORDERED: CEFAZOLIN 250 MG/ML 1 GM VIAL ONE (11:51)
[2018-12-12] MEDS ORDERED: GLYCOPYRROLATE 0.2 MG/ML VIAL ONE (11:52)
[2018-12-12] MEDS ORDERED: DEXAMETHASONE SOD INJ 4 MG/ML VIAL ONE (11:52)
[2018-12-12] MEDS ORDERED: LIDOCAINE HCL 2% 2 ML VIAL/AMP(20MG/ML) INFIL ONE (11:52)
[2018-12-12] MEDS ORDERED: MIDAZOLAM HCL 1 MG/ML 2ML VIAL ONE (11:52)
[2018-12-12] MEDS ORDERED: PROPOFOL IV EMULSION 10 MG/ML 20 ML VIAL IV ONE (11:52)
[2018-12-12] MEDS ORDERED: LARYING-O-JET KIT (LTA) ONE (11:52)
[2018-12-12] MEDS ORDERED: ONDANSETRON INJ 2 MG/ML 2 ML VIAL ONE ×2 (11:52→17:25)
[2018-12-12] MEDS ORDERED: HEPARIN SOD (PORCINE) 1000 UNIT/ML 10 ML VIAL ONE (11:52)
[2018-12-12] MEDS ORDERED: ROCURONIUM BROMIDE 10 MG/ML 5 ML VIAL ONE (11:52)
[2018-12-12] MEDS ORDERED: fentaNYL citrate 100 MCG/2 ML VIAL ONE ×3 (11:52→15:14)
[2018-12-12] MEDS ORDERED: ePHEDrine sulfate 50 MG/ML SYR ONE (11:52)
[2018-12-12] MEDS ORDERED: NEOSTIGMINE METHYLSULFATE 5 MG/5 ML SYR ONE (11:52)
[2018-12-12] MEDS ORDERED: THROMBIN FOR SOLN 20000 UNIT KIT ONE ×2 (12:12→15:03)
[2018-12-12] MEDS ORDERED: LABETALOL HCL IV 5 MG/ML 20ML IV ONE (15:12)
[2018-12-12] MEDS ORDERED: PROTAMINE SULFATE 10 MG/ML 5 ML VIAL ONE (16:17)
--- NOTE | 2018-12-12 16:48 | Post Operative Brief Note ---
Immediate Post Op Note v1 Date of Surgery December 12, 2018 Pre & Post Diagnosis Operation Date: 12/12/18 11:00 Pre-Op Diagnosis: Left Common Femoral Stenosis, Severe Claudication Post-Op Diagnosis: Left Common Femoral Stenosis, Severe Claudication Procedure Operation Date: 12/12/18 11:00 Actual Procedures p Left Common Femoral Artery Endarterectomy with Patch Angioplasty(Left) - Elías Walls MD s Left Leg Arteriogram with balloon angioplasty of left superficial femoral artery(Left) - Elías Walls MD Surgeon Elías Walls MD Senior Analysis Specialist MD Naomie L.Minarchick,PAC Estimated Blood Loss 250 Findings Consistent with Post-Op Diagnosis Drains Hayes Catheter Anesthesia Type General Complications none Disposition Accompanied Patient To Recovery: No Disposition: Recovery Room
--- NOTE | 2018-12-12 17:08 | Procedure Note ---
Angiogram Post Procedure Fluoroscopy Time (minutes): 2.6 Radiation (mGy): 14 Contrast: 50cc visipaque Post Operative Report Pre & Post Diagnosis Operation Date: 12/12/18 11:00 Pre-Op Diagnosis: Left Common Femoral Stenosis, Severe Claudication Post-Op Diagnosis: Left Common Femoral Stenosis, Severe Claudication Procedure Operation Date: 12/12/18 11:00 Actual Procedures p Left Common Femoral Artery Endarterectomy with Patch Angioplasty(Left) - Elías Walls MD s Left Leg Arteriogram with balloon angioplasty of left superficial femoral artery(Left) - Elías Walls MD Surgeon Elías Walls MD Senior Benefits Specialist MD Luis Eduardo AkbarMinarchick,PAC Estimated Blood Loss 250 Findings Consistent with Post-Op Diagnosis Fluids 2200cc crystalloid Specimens none Drains none Anesthesia Type General Complications none Disposition Accompanied Patient To Recovery: No Disposition: Recovery Room Indications severe PAD, LLE claudication Description of Procedure The patient was brought to the operating room and placed in the supine position. The patient's identity and surgical site were verified. The patient's bilateral groins and lower abdomen were prepped and draped in the usual sterile fashion. A timeout was performed. A longitudinal incision was made over the palpable femoral artery in the left groin. The left common femoral artery, proximal superficial profunda, and proximal profunda femoris arteries were dissected out. The lateral circumflex iliac artery was also dissected out. Circumferential control was obtained of these 4 arteries. Using a scalpel and wheat scissors a longitudinal arteriotomy was made along the common femoral artery, extending to the proximal SFA. Dense atherosclerotic plaque was noted throughout, however most profoundly at the common femoral bifurcation where large calcific chunks were noted. An endarterectomy was performed of the CRUCIBLE PACKER, proximal SFA, and origin of the profunda. There were a few areas along the more proximal and lateral aspect of the common femoral artery where the artery was quite thin. Good backbleeding from the SFA and profunda was noted. A GoreTex patch was sewn in with a goretex suture. Prior to the last few bites of the patch the common, superficial, and femoral arteries were flushed. After the patch was completed, needle hole bleeding was noted, particularly in the aforementioned thin areas of the common femoral artery. Repair sutures were placed, thrombin gel foam was placed, and pressure was held. Dr. Walls was present and scrubbed for the entire procedure. At this time we turned to the endovascular portion of the case. We used an 18G needle to access the proximal left common femoral artery, just proximal to the patch. A guidewire was placed and then an 8F sheath was placed. An angiogram of the left lower extremity was shot. This revealed patent CRUCIBLE PACKER. The superficial femoral artery had a hemodynamically significant stenosis in its midportion. Flow distal to this was sluggish however the distal SFA was patent and there was sluggish three vessel runoff. We then passed a glidewire down to the superficial femoral artery. We could not pass the area of stenosis with the glidewire so we used an 035 quick cross catheter and glidewire to cross the lesion. We then performed balloon angioplasty of the stenotic segment with a 7F balloon. We shot another angiogram which showed great improvement in the area of stenosis with quick flow through this area. Three vessel outflow to the foot was noted and was no longer sluggish. We turned our attention back to the left groin. Wires and catheters were removed. A pursestring suture was used to close the arteriotomy around the sheath and the sheath was pulled. We finished obtaining hemostasis around the patch. On insonation with the doppler multiphasic flow was noted in the common femoral, superficial femoral, and profunda femoris arteries. The left groin was closed with 2-0 vicryl for the fascia and 3-0 vicryl for the dermis. The skin was then closed with saba and a clean dry gauze dressing with tape was placed. At the conclusion of the case, all instrument and needle counts were correct. The patient had palpable PT and DP pulses on the left which were confirmed as multiphasic on doppler. The patient was taken to the recovery room in satisfactory condition. I attest to the content of the Intraoperative Record and any orders documented therein. Any exceptions are noted below.
[2018-12-12 17:29] LABS: Basophils # (auto) 0.02 K/uL (0-0.2); Basophils % (auto) 0.2 %; Eosinophils # (auto) 0.07 K/uL (0-0.5); Eosinophils % (auto) 0.7 %; Hematocrit (blood only) 30.2 % (42-52); Hemoglobin 10.6 g/dL (14.0-18.0); Immature Granulocytes # (auto) 0.02 K/uL (0.00-0.02); Immature Granulocytes % (auto) 0.2 %; Lymphocytes # (auto) 1.28 K/uL (1.2-3.4); Lymphocytes % (auto) 13.7 %; Mean Corpuscular Hgb Conc 35.1 g/dL (32-36); Mean Corpuscular Volume 98.4 fL (80-100); Mean Platelet Volume 10.3 fL (7.4-10.4); Monocytes # (auto) 0.23 K/uL (0.11-0.59); Monocytes % (auto) 2.5 %; Neutrophils # (auto) 7.75 K/uL (1.4-6.5); Neutrophils % (auto) 82.7 %; Platelet Count 176 K/uL (130-400); RDW Coefficient of Variation 14.4 % (11.5-14.5); RDW Standard Deviation 51.7 fL (36.4-46.3); Red Blood Count 3.07 M/uL (4.7-6.1); White Blood Count 9.37 K/uL (4.8-10.8)
[2018-12-12] MEDS ORDERED: PROMETHAZINE HCL 12.5 MG in SODIUM CHLORIDE 0.9% 50 ML IV STA (17:35)
[2018-12-12] MEDS: fentaNYL citrate 100 MCG/2 ML VIAL IV PRN ×2 (17:50→18:00)
--- NOTE | 2018-12-12 18:21 | Anesthesiology Progress Note ---
Date of Service December 12, 2018 Anesthesia Post Procedure Vital Signs Vital Signs: Temp Pulse Pulse Resp BP Pulse Ox 12/12/18 18:00 37.3 C 57 L 12 112/61 97 12/12/18 17:50 37.3 C 60 19 98/55 L 94 12/12/18 17:40 37.3 C 56 L 17 99/57 L 96 12/12/18 17:30 37.3 C 65 16 120/70 100 12/12/18 17:20 37.3 C 60 16 120/65 100 12/12/18 17:12 37.3 C 58 L 15 120/65 100 12/12/18 09:37 36.6 C 65 20 165/93 H 94 Pain Intensity Left Leg: Pain Intensity: 5 Transfer of Care Handoff Completed per policy Notes Mental Status: alert / awake / arousable Patient Amnestic to Procedure: Yes Nausea / Vomiting: adequately controlled Pain: adequately controlled Airway Patency, RR, SpO2: stable & adequate BP & HR: stable & adequate Hydration State: stable & adequate Anesthetic Complications: no major complications apparent
[2018-12-12] MEDS ORDERED: MEDICAL MARIJUANA PO SCH (18:45)
[2018-12-12] MEDS ORDERED: OXYCODONE/ACETAMINOPHEN 5mg/325mg TAB PO PRN (18:45)
[2018-12-12] MEDS ORDERED: MoRPHine SULFATE 4 MG/ML 1 ML CARP\\VIAL IV PRN (18:45)
[2018-12-12] MEDS: D5W AND 1/2NSS 1,000 ML IV SCH (19:01)
[2018-12-12 19:08] LABS: Basophils # (auto) 0.01 K/uL (0-0.2); Basophils % (auto) 0.1 %; Eosinophils # (auto) 0.01 K/uL (0-0.5); Eosinophils % (auto) 0.1 %; Hematocrit (blood only) 29.6 % (42-52); Hemoglobin 10.3 g/dL (14.0-18.0); Immature Granulocytes # (auto) 0.02 K/uL (0.00-0.02); Immature Granulocytes % (auto) 0.3 %; Lymphocytes # (auto) 0.88 K/uL (1.2-3.4); Lymphocytes % (auto) 11.2 %; Mean Corpuscular Hgb Conc 34.8 g/dL (32-36); Mean Corpuscular Volume 98.7 fL (80-100); Mean Platelet Volume 9.7 fL (7.4-10.4); Monocytes # (auto) 0.18 K/uL (0.11-0.59); Monocytes % (auto) 2.3 %; Neutrophils # (auto) 6.74 K/uL (1.4-6.5); Platelet Count 170 K/uL (130-400); RDW Coefficient of Variation 14.5 % (11.5-14.5); White Blood Count 7.84 K/uL (4.8-10.8)
[2018-12-12] MEDS ORDERED: MoRPHine SULFATE 2 MG/ML CARP IV PRN (19:47)
[2018-12-12] MEDS: CARVEDILOL 25 MG TAB PO SCH (20:48)
[2018-12-12] MEDS: MAGNESIUM CHLORIDE 64MG DELAYED REL TAB PO SCH (20:54)
[2018-12-12] MEDS: CHOLECALCIFEROL 1,000 UNITS TAB PO SCH (20:54)
[2018-12-12] MEDS ORDERED: ASPIRIN 81 MG ECTAB PO SCH (21:00)
[2018-12-12] MEDS ORDERED: CEROVITE ADV FORMULA TAB PO SCH (21:00)
[2018-12-12] MEDS ORDERED: ATORVASTATIN 40 MG TAB PO SCH (21:00)
[2018-12-12] MEDS ORDERED: LOSARTAN POTASSIUM 50 MG TAB PO SCH (21:00)
[2018-12-12] MEDS: COLESTIPOL HCL 1 GM TAB PO SCH (22:14)
[2018-12-12] MEDS: CEFAZOLIN 1000MG 1,000 MG/7.5 ML SYR IV SCH (23:53)
[2018-12-13] MEDS: D5W AND 1/2NSS 1,000 ML IV SCH ×2 (02:57→10:51)
[2018-12-13 06:58] LABS: Basophils # (auto) 0.01 K/uL (0-0.2); Basophils % (auto) 0.1 %; Hematocrit (blood only) 24.3 % (42-52); Hemoglobin 8.4 g/dL (14.0-18.0); Immature Granulocytes # (auto) 0.01 K/uL (0.00-0.02); Immature Granulocytes % (auto) 0.1 %; Lymphocytes # (auto) 1.37 K/uL (1.2-3.4); Lymphocytes % (auto) 19.7 %; Mean Corpuscular Hgb Conc 34.6 g/dL (32-36); Mean Corpuscular Volume 98.8 fL (80-100); Mean Platelet Volume 9.9 fL (7.4-10.4); Monocytes # (auto) 0.73 K/uL (0.11-0.59); Monocytes % (auto) 10.5 %; Neutrophils # (auto) 4.85 K/uL (1.4-6.5); Neutrophils % (auto) 69.6 %; Platelet Count 154 K/uL (130-400); RDW Coefficient of Variation 14.6 % (11.5-14.5); RDW Standard Deviation 52.7 fL (36.4-46.3); Red Blood Count 2.46 M/uL (4.7-6.1); White Blood Count 6.97 K/uL (4.8-10.8)
[2018-12-13] MEDS ORDERED: METFORMIN HCL 500 MG TAB PO SCH (08:00)
[2018-12-13] MEDS: CEFAZOLIN 1000MG 1,000 MG/7.5 ML SYR IV SCH (08:11)
[2018-12-13] MEDS: CHOLECALCIFEROL 1,000 UNITS TAB PO SCH (08:12)
[2018-12-13] MEDS: CARVEDILOL 25 MG TAB PO SCH (08:13)
[2018-12-13] MEDS: MAGNESIUM CHLORIDE 64MG DELAYED REL TAB PO SCH (08:16)
--- NOTE | 2018-12-13 08:34 | Anesthesiology Progress Note ---
Date of Service December 13, 2018 Anesthesia Post Procedure Vital Signs Vital Signs: Temp Pulse Pulse Resp BP Pulse Ox Pulse Ox 12/13/18 07:45 36.9 C 61 18 110/56 L 96 12/13/18 03:16 36.9 C 72 16 96/52 L 96 12/13/18 00:20 97 12/12/18 23:06 36.3 C L 66 16 105/59 L 97 12/12/18 21:51 36.6 C 75 16 98/58 L 94 12/12/18 20:45 36.4 C L 63 16 98/62 L 94 12/12/18 19:48 36.3 C L 59 L 16 119/69 94 12/12/18 18:45 36.4 C L 66 16 120/73 98 12/12/18 18:20 36.5 C 55 L 16 106/58 L 100 12/12/18 18:10 36.5 C 55 L 15 138/68 100 12/12/18 18:00 37.3 C 57 L 12 112/61 97 12/12/18 17:50 37.3 C 60 19 98/55 L 94 12/12/18 17:40 37.3 C 56 L 17 99/57 L 96 12/12/18 17:30 37.3 C 65 16 120/70 100 12/12/18 17:20 37.3 C 60 16 120/65 100 12/12/18 17:12 37.3 C 58 L 15 120/65 100 12/12/18 09:37 36.6 C 65 20 165/93 H 94 Pain Intensity Left Leg: Pain Intensity: 5 Notes Mental Status: alert / awake / arousable and participated in evaluation Patient Amnestic to Procedure: Yes Nausea / Vomiting: adequately controlled Pain: adequately controlled Airway Patency, RR, SpO2: stable & adequate BP & HR: stable & adequate Hydration State: stable & adequate Anesthetic Complications: no major complications apparent and Pt Satisfied with anesthetic care
--- NOTE | 2018-12-13 08:55 | Surgery Progress Note ---
Date of Service December 13, 2018 Assessment & Plan (1) Severe claudication: Patient doing extremely well post op. Will d/c today. Subjective Only complaint is mild incisional pain Physical Exam Constitutional: WD/WN, vitals as above Cardiovascular: Extremities: normal capillary refill good dopplers of left foot Skin: + wound (incision dry and clean) Results & Data Vital Signs (Past 12 Hours) Vital Signs Temp Pulse Pulse Resp BP Pulse Ox Pulse Ox 12/13/18 07:45 36.9 C 61 18 110/56 L 96 12/13/18 03:16 36.9 C 72 16 96/52 L 96 12/13/18 00:20 97 12/12/18 23:06 36.3 C L 66 16 105/59 L 97 12/12/18 21:51 36.6 C 75 16 98/58 L 94
[2018-12-13] MEDS ORDERED: VITAMIN B COMPLEX TAB PO SCH (09:00)
[2018-12-13] MEDS ORDERED: PANTOprazole 40 MG TAB PO SCH (09:00)
[2018-12-13] MEDS ORDERED: FERROUS SULFATE 325 MG TAB PO SCH (09:00)
[2018-12-13] MEDS ORDERED: CLOPIDOGREL BISULFATE 75 MG TAB PO SCH (09:00)
[2018-12-13] MEDS ORDERED: CHLORTHALIDONE 25 MG TAB PO SCH (09:00)
[2018-12-13] MEDS: COLESTIPOL HCL 1 GM TAB PO SCH (10:16)
--- NOTE | 2018-12-15 09:40 | Discharge Summary ---
Date of Service December 15, 2018 Admission HPI Per Admitting Provider Mr. Lindsay is an active smoker who has a history of abdominal aortic aneurysm disease status post endovascular intervention who has presented with significant bilateral lower extremity claudication symptoms for the past 2-3 years. He states that his left side is worse than his right, and he, at rest, has vague cramping in his calf and hamstring. He states that this acutely worsens and he has an exercise tolerance of about 40 yards per history and if walking further, he will have claudication symptoms throughout his whole leg extending up into his bilateral legs and gluteal muscles. When we previously had evaluated him, we recommended CT angiogram of his aorta and bilateral lower extremities as well as duplex ultrasounds of his carotid for a personal history of asymptomatic carotid stenosis. He returns to clinic after completion of his CT angiogram which showed him to have severe stenosis of his left common femoral artery with significant bilateral stenosis of his bilateral superficial and deep femoral arteries and all 3 vessels of his lower extremity. He does have patent runoff in all of his lower extremities. He reports no change in his symptoms and he has had no change in his medical history or symptomatology since he was evaluated on 10/17/2018 Admission Exam Per Admitting Provider He is awake and alert and in NAD. His mucous membranes are moist. His sclerae are anicteric, extraocular movements were intact. His lungs had faint crackles at baseline in his bibasilar day and he had a nonproductive cough during the examination. His heart had a regular rate with a normal sinus rhythm. His peripheral upper extremity pulses were +2 bilaterally. He had a +2 right femoral pulse, but no left femoral pulse. He had +1 distal pulses in his DP and PT. His left leg was warm and perfused, but without any lower extremity pulsations. Both legs were normal in color without any rubor with distal sensation and strength intact bilaterally. Principal Diagnosis 1. s/p Left Common Femoral artery Endarterectomy with prosthetic patch and LLE angio with LEAVE SPECIALIST 2. LLE severe PAD with claudication Discharge Exam Constitutional WD/WN, vitals as above Cardiovascular Extremities: normal capillary refill Skin + wound (incision dry and clean) Discharge Data Allergies Allergy/AdvReac Type Severity Reaction Status Date / Time No Known Allergies Allergy Verified 12/12/18 09:18 Procedures Performed Operation Date: 12/12/18 11:00 Actual Procedures p Left Common Femoral Artery Endarterectomy with Patch Angioplasty(Left) - Elías Walls MD s Left Leg Arteriogram with balloon angioplasty of left superficial femoral artery(Left) - Elías Walls MD Ordered Studies 12/12/18 11:32 EV angio LE LT Routine Hospital Course (1) Severe claudication: Patient doing extremely well POD #1 after uncomplicated LLE procedure. Will d/c today. Total Time Total Time Spent Total Time Spent (In Minutes): 10 min Total Time Includes: Examination of the Patient, Discharge Planning and Medication Reconciliation Discharge Plan Discharge Items Patient Disposition: Home - Self-Care Reason For Visit: Left Common Femoral Stenosis, Severe Claudication Discharge Diagnosis: Left common femoral stenosis and left superficial femoral artery stenosis Discharge Goals: Therapeutic intervention Activity: Resume your previous activity Lifting: No more than 25 pounds Bathing Comment: may shower in 2 days Non-emergency contact: Surgeon Call non-emergency contact if: you have any medication questions, your symptoms worsen, your pain is not controlled, your pain is worsening, your pain is unusual for you, your pain is concerning for you, your temperature is above 101.5, your wound has increased redness, your wound has increased drainage and your wound pain has increased Follow-up/Referrals: Lester Babcock MD [Primary Care Provider] - Diet: Carb Consistent or DM2 and Heart Healthy Addtl Provider Instructions: ACTIVITY RECOMMENDATIONS: See Above SPECIAL CARE INSTRUCTIONS: Call your doctor if: * Temperature above 101 degrees * Pain not relieved by pain medicine ordered * There is increased drainage or redness from any incision * You have any unanswered questions or concerns. Call [phone] to schedule a follow up appointment if one not already scheduled. Prescriptions: New docusate sodium [Colace] 100 mg capsule 100 mg PO BID Qty: 20 RF: 0 ferrous sulfate 325 mg (65 mg iron) tablet 325 mg PO BID Qty: 30 RF: 0 oxycodone-acetaminophen [Percocet] 5-325 mg tablet 1 tab PO Q6H PRN (Reason: pain) Qty: 30 RF: 0 Continued metformin 1,000 mg tablet 500 mg PO BID Qty: 90 RF: 1 vitamin B complex [B Complex 1] tablet 1 tab PO DAILY RF: 0 aspirin [Aspirin Low Dose] 81 mg Tablet,Delayed Release (Dr/Ec) 81 mg PO QPM RF: 0 magnesium chloride [Mag 64] 64 mg Tablet,Delayed Release (Dr/Ec) 64 mg PO BID RF: 0 Medical Marijuana 1 mg PO UNKNOWN RF: 0 clopidogrel [Plavix] 75 mg Tablet 75 mg PO QAM RF: 0 chlorthalidone 25 mg Tablet 25 mg PO QAM RF: 0 pantoprazole [Protonix] 40 mg Tablet,Delayed Release (Dr/Ec) 40 mg PO QAM RF: 0 ranitidine HCl 150 mg Tablet 150 mg PO QPM RF: 0 colestipol 1 gram Tablet 1 g PO BID RF: 0 cholecalciferol (vitamin D3) [Vitamin D3] 1,000 unit Capsule 1,000 unit PO BID RF: 0 Multivitamin 50 Plus Tablet 1 tab PO QPM RF: 0 losartan 50 mg Tablet 50 mg PO QPM RF: 0 atorvastatin 40 mg Tablet 40 mg PO PM RF: 0 ferrous sulfate 325 mg (65 mg iron) Tablet 325 mg PO QAM RF: 0 carvedilol [Coreg] 12.5 mg tablet 25 mg PO BID RF: 0 Stand-Alone Forms: [facility] Center[facility], [facility] [place]/Other Patient Handouts: Pletal PAD Discharge Orders: Discharge Order (Routine); Ordered 12/13/18 Ordered By: Elías Walls Admission Data Admit Date/Time: 12/12/18 11:43 Attending Provider: Elías Walls Admit Provider: Elías Walls Primary Care Provider: Lester Babcock Service: Surgical Services Other Interventions: Discharge Summary Assessment (RN) Last Done: 12/13/18 09:49 DC Date/Time DO NOT enter until pt leaves facility: 12/13/18 14:19
== END 2018-12-13 14:19 | disposition home or self-care (01) | DRG 253 ==
LOC: ASU 08:56 → 3N 11:43
DX: E87.1 Hypo-osmolality and hyponatremia; I70.218 Atherosclerosis of native arteries of extremities with intermittent claudication, other extremity; J44.9 Chronic obstructive pulmonary disease, unspecified; C76.1 Malignant neoplasm of thorax; E11.51 Type 2 diabetes mellitus with diabetic peripheral angiopathy without gangrene

== ENCOUNTER 2019-03-30 10:41 | Inpatient (IN) ==
[2019-03-30 11:45] LABS: Basophils # (auto) 0.01 K/uL (0-0.2); Basophils % (auto) 0.2 %; Eosinophils # (auto) 0.13 K/uL (0-0.5); Eosinophils % (auto) 2.8 %; Hematocrit (blood only) 33.7 % (42-52); Hemoglobin 11.6 g/dL (14.0-18.0); Immature Granulocytes # (auto) 0.01 K/uL (0.00-0.02); Immature Granulocytes % (auto) 0.2 %; Lymphocytes # (auto) 1.37 K/uL (1.2-3.4); Lymphocytes % (auto) 29.6 %; Mean Corpuscular Hemoglobin 34.1 pg (25-34); Mean Corpuscular Hgb Conc 34.4 g/dL (32-36); Mean Corpuscular Volume 99.1 fL (80-100); Monocytes # (auto) 0.45 K/uL (0.11-0.59); Monocytes % (auto) 9.7 %; Neutrophils # (auto) 2.66 K/uL (1.4-6.5); Neutrophils % (auto) 57.5 %; Platelet Count 175 K/uL (130-400); RDW Coefficient of Variation 14.8 % (11.5-14.5); White Blood Count 4.63 K/uL (4.8-10.8)
[2019-03-30 11:58] LABS: Alanine Aminotransferase 23 U/L (12-78); Albumin Level 3.3 gm/dl (3.4-5.0); Aspartate Aminotransferase 17 U/L (15-37); BUN Creatinine Ratio 20.1 (10-20); Blood Urea Nitrogen 23 mg/dl (7-18); Carbon Dioxide 30 mmol/L (21-32); Chloride 102 mmol/L (98-107); Est GFR (African American) 73.5; Est GFR (Non-African American) 63.4; Glucose 100 mg/dl (70-99); Potassium 3.8 mmol/L (3.5-5.1); Sodium 135 mmol/L (136-145)
[2019-03-30 12:01] LABS: Albumin Globulin Ratio 1.1 (0.9-2); Alkaline Phosphatase 71 U/L (45-117); Bilirubin,Total 0.7 mg/dl (0.2-1); Globulin 3.1 gm/dl (2.5-4.0); Total Protein 6.4 gm/dl (6.4-8.2)
[2019-03-30] MEDS ORDERED: ONDANSETRON INJ 2 MG/ML 2 ML VIAL IV STA (12:21)
[2019-03-30] MEDS ORDERED: SODIUM CHLORIDE 0.9% 1000ML 1,000 ML IV ONE (12:21)
[2019-03-30] MEDS ORDERED: MoRPHine SULFATE 4 MG/ML 1 ML CARP\\VIAL IV STA (12:21)
[2019-03-30] MEDS ORDERED: IOVERSOL 100ml IV PRN (12:45)
--- NOTE | 2019-03-30 12:57 | CT Scan Report ---
CT head/brain wo con CLINICAL HISTORY: 73 years-old Male with syncope. Acute syncope with fall and head injury TECHNIQUE: Multiple axial CT images of the head were obtained without contrast. A dose lowering tech nique was utilized adhering to the principles of ALARA. CT DOSE: 1766.01 mGy.cm COMPARISON: Head CT 12/13/2014. FINDINGS: No acute intracranial hemorrhage, midline shift, intracranial mass, hydrocephalus, territorial ischem ia or abnormal extra-axial collection. Age-related involutional changes with ex vacuo ventriculomegal y. Patchy white matter hypodensities suggest chronic microvascular ischemic disease. Cerebral vascula r calcifications also noted. Tony not imaged. The calvarium is intact. Prior bilateral cataract repair. The paranasal sinuses, mastoid air cells, a nd middle ear cavities are clear. IMPRESSION: No acute intracranial abnormality or calvarial fracture. The above report was generated using voice recognition software. It may contain grammatical, syntax o r spelling errors. Electronically signed by: Chepe Jay M.D. 03/30/2019 12:56 PM
--- NOTE | 2019-03-30 13:04 | CT Scan Report ---
CT abd pelvis IV con only CLINICAL HISTORY: Right lower abdominal pain status post trauma COMPARISON STUDY: September 2018 TECHNIQUE: The patient was scanned in a dynamic helical fashion during intravenous administration of 93 cc of Optiray 320 A dose lowering technique was utilized adhering to the principles of ALARA. CT DOSE: 300.32 mGy.cm FINDINGS: Lower chest: The heart is normal in size and configuration, without pericardial effusion. The lung ba ses and pleural spaces are clear. Liver: The contrast-enhanced liver is normal in size, contour, and attenuation. There is no intrahepa tic biliary ductal dilatation. The hepatic veins and portal veins are patent. Gallbladder: Surgically absent. There is dilatation of the common bile duct which measures 13 mm. Thi s remain similar to the prior study. Spleen: Normal in size and attenuation. Pancreas: Unremarkable. Adrenal glands: Unremarkable. Kidneys: There is symmetric renal cortical enhancement. The kidneys are normal in size without hydron ephrosis. There is a 5 mm right renal ossification, calculus versus vascular. Bowel: There are no transition zones indicate bowel obstruction. There are no extraluminal gas collec tions. There is no pathologic interloop fluid. There is pandiverticulosis. There is no evidence of ac saul diverticulitis. The appendix appears normal. Peritoneum: There is no intraperitoneal free air or abdominal ascites. Vasculature: The patient has abdominal aortic aneurysm status post aortobiiliac stent grafting. The n ative aneurysmal sac measures 45 mm, and remain similar to the preceding study. Moderately extensive atheromatous changes are present within the iliac vessels. Adenopathy: None. Pelvic viscera: There is mild prostatomegaly. Skeletal structures: There are fractures of the left 12th and 11th ribs. There are fractures of the r ight L1, L2, and L3 transverse processes. IMPRESSION: 1. Acute fractures of the left 11th and 12th ribs 2. Acute fractures of the right L1, L2, and L3 transverse processes 3. No evidence of solid organ injury Electronically signed by: Adán Barajas M.D. 03/30/2019 1:02 PM
--- NOTE | 2019-03-30 13:18 | CT Scan Report ---
CT lumbar spine wo con CT DOSE: CLINICAL HISTORY: lower back pain TRAUMA TECHNIQUE: Helical images were acquired in transverse plane. Reformatted sagittal and coronal images were reviewed. A dose lowering technique was utilized adhering to the principles of ALARA. CONTRAST: No contrast was administered COMPARISON STUDY: MRI performed November 2012 FINDINGS: L1-2 level: There is no evidence of significant disc bulge or focal herniation. There is no evidence of spinal or foraminal stenosis. L2-3 level: There is no evidence of significant disc bulge or focal herniation. There is no evidence of spinal or foraminal stenosis. L3-4 level: There is a mild circumferential disc bulge. There is mild spinal stenosis. There is no si gnificant foraminal narrowing L4-5 level: There is a circumferential disc bulge. There is moderate spinal stenosis. There is mild b ilateral foraminal narrowing L5-S1 level: There is a mild circumferential disc bulge. There is mild to moderate spinal stenosis. T here is mild bilateral foraminal narrowing. No vertebral body fractures or traumatic subluxations are visualized. There are acute fractures of the left 11th and 12th ribs. There are acute fractures of the right L1, L2, L3 transverse processes. IMPRESSION: 1. Fractures the right L1, L2, L3 transverse processes 2. Fractures of the left 11th and 12th ribs 3. No vertebral body fractures identified 4. Multilevel spondylytic changes with mild spinal stenosis at the L3-4 level, and moderate spinal st enosis the L4-5, and L5-S1 levels. Electronically signed by: Adán Barajas M.D. 03/30/2019 1:17 PM
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
[2019-03-30 13:43] LABS: Troponin I < 0.015 ng/ml (0-0.045)
[2019-03-30 14:45] LABS: Appearance Urine Clear (Clear); Bilirubin Urine Negative (Negative); Blood Urine Negative (Negative); Color Urine Dark Yellow; Glucose Urine UA Negative (Negative); Ketones Urine Trace (Negative); Leukocyte Esterase Urine Negative (Negative); Nitrite Urine Negative (Negative); Protein Urine Negative (Negative); Specific Gravity Urine 1.029 (1.000-1.030); Urobilinogen Urine Negative (Negative); pH Urine 5.5 (4.5-7.5)
[2019-03-30 15:24] LABS: Creatine Kinase 80 U/L (39-308)
[2019-03-30] MEDS ORDERED: GLUCOSE 40% GEL 15 GM TUBE PO PRN (17:16)
[2019-03-30] MEDS ORDERED: GLUCOSE 10 TABS/TUBE PO PRN (17:16)
[2019-03-30] MEDS ORDERED: ONDANSETRON INJ 2 MG/ML 2 ML VIAL IV PRN (17:16)
[2019-03-30] MEDS ORDERED: NICOTINE 14 MG/24 HR PATCH TD PRN (17:16)
[2019-03-30] MEDS ORDERED: GLUCAGON FOR INJ 1 MG VIAL SQ PRN (17:16)
[2019-03-30] MEDS ORDERED: DEXTROSE 50% 50 ML SYRINGE IV PRN (17:16)
[2019-03-30] MEDS ORDERED: ACETAMINOPHEN 325 MG TAB PO PRN (17:16)
[2019-03-30] MEDS ORDERED: CARBOHYDRATES FOR HYPOGLYCEMIA PO PRN (17:16)
[2019-03-30] MEDS: SODIUM CHLORIDE 0.9% 1000ML 1,000 ML IV SCH (17:39)
[2019-03-30] MEDS: MoRPHine SULFATE 4 MG/ML 1 ML CARP\\VIAL IV PRN ×2 (17:41→21:46)
[2019-03-30] MEDS: INSULIN ASPART 100 UNITS/ML 3 ML PEN SC SCH ×2 (17:42→20:48)
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
[2019-03-30] MEDS: ACETAMINOPHEN 500 MG TAB PO SCH (17:57)
[2019-03-30] MEDS: carvediloL 25 MG TAB PO SCH (18:23)
[2019-03-30] MEDS: FERROUS SULFATE 325 MG TAB PO SCH (20:11)
[2019-03-30] MEDS: CALCIUM 600MG + VIT D 400 IU TAB PO SCH (20:11)
[2019-03-30] MEDS ORDERED: ATORVASTATIN 40 MG TAB PO SCH (21:00)
[2019-03-30] MEDS ORDERED: LOSARTAN POTASSIUM 50 MG TAB PO SCH (21:00)
[2019-03-30] MEDS ORDERED: MAGNESIUM CHLORIDE 64MG DELAYED REL TAB PO SCH (21:00)
[2019-03-30] MEDS ORDERED: ASPIRIN 81 MG ECTAB PO SCH (21:00)
[2019-03-30] MEDS ORDERED: CEROVITE ADV FORMULA TAB PO SCH (21:00)
[2019-03-30] MEDS: COLESTIPOL HCL 1 GM TAB PO SCH (21:45)
--- NOTE | 2019-03-30 22:44 | Ultrasound Report ---
BILATERAL CAROTID DOPPLER STUDY HISTORY: Syncopal episode COMPARISON: Carotid Doppler 02/07/2015. TECHNIQUE: Real-time, grayscale, and color Doppler sonography of the carotid arteries was performed. Imaging reviewed in the transverse and longitudinal planes. All measurements were calculated based on NASCET criteria. FINDINGS: Antegrade flow is seen in the bilateral vertebral arteries. The brachial pressures are hemodynamically similar. Moderate scattered calcified plaque within the bilateral carotid arteries is again noted. The peak systolic velocity within the right ICA is 85 cm/s. The right systolic ratio is 0.8. The peak systolic velocity within the left ICA is 77 cm/s. The left systolic ratio is 0.7. IMPRESSION: No hemodynamically significant stenosis seen within the carotid arteries. Electronically signed by: Preston Vergara M.D. 03/30/2019 10:43 PM
[2019-03-31] MEDS: SODIUM CHLORIDE 0.9% 1000ML 1,000 ML IV SCH (01:45)
[2019-03-31] MEDS: ACETAMINOPHEN 500 MG TAB PO SCH ×2 (06:27→14:17)
[2019-03-31 06:45] LABS: Hematocrit (blood only) 32.8 % (42-52); Hemoglobin 11.1 g/dL (14.0-18.0); Mean Corpuscular Hemoglobin 33.7 pg (25-34); Mean Corpuscular Hgb Conc 33.8 g/dL (32-36); Mean Corpuscular Volume 99.7 fL (80-100); Mean Platelet Volume 10.3 fL (7.4-10.4); Platelet Count 166 K/uL (130-400); RDW Coefficient of Variation 14.8 % (11.5-14.5); RDW Standard Deviation 54.1 fL (36.4-46.3); Red Blood Count 3.29 M/uL (4.7-6.1); White Blood Count 4.07 K/uL (4.8-10.8)
[2019-03-31 07:21] LABS: BUN Creatinine Ratio 15.1 (10-20); Calcium 8.4 mg/dl (8.5-10.1); Creatinine Clr Calc Pharmacy 57.6 ml/min; Est GFR (African American) 83.1; Est GFR (Non-African American) 71.7; Estimated Average Glucose 131 mg/dl; Hemoglobin A1C 6.2 % (4.5-5.6); Potassium 3.6 mmol/L (3.5-5.1)
[2019-03-31 07:32] LABS: Bilirubin,Total 0.6 mg/dl (0.2-1); Globulin 2.9 gm/dl (2.5-4.0); Thyroid Stimulating Hormone 2.43 uIu/ml (0.300-4.500); Total Protein 5.9 gm/dl (6.4-8.2)
[2019-03-31] MEDS: carvediloL 25 MG TAB PO SCH (08:27)
[2019-03-31] MEDS: INSULIN ASPART 100 UNITS/ML 3 ML PEN SC SCH ×2 (08:28→12:27)
[2019-03-31] MEDS: CALCIUM 600MG + VIT D 400 IU TAB PO SCH (08:29)
[2019-03-31] MEDS: FERROUS SULFATE 325 MG TAB PO SCH (08:29)
[2019-03-31] MEDS: MoRPHine SULFATE 4 MG/ML 1 ML CARP\\VIAL IV PRN (08:43)
[2019-03-31 08:53] LABS: Vitamin B12 821 pg/ml (211-911)
[2019-03-31 08:54] LABS: Folate (Folic Acid) > 24.00 ng/ml (>5.38)
[2019-03-31] MEDS ORDERED: CHLORTHALIDONE 25 MG TAB PO SCH (09:00)
[2019-03-31] MEDS ORDERED: VITAMIN B COMPLEX TAB PO SCH (09:00)
[2019-03-31] MEDS ORDERED: LIDOCAINE 5% 1 PATCH TD SCH (09:00)
[2019-03-31] MEDS ORDERED: PANTOprazole 40 MG TAB PO SCH (09:00)
[2019-03-31] MEDS ORDERED: TAMSULOSIN HCL 0.4 MG CAP PO SCH (09:00)
[2019-03-31] MEDS ORDERED: CLOPIDOGREL BISULFATE 75 MG TAB PO SCH (09:00)
[2019-03-31] MEDS: COLESTIPOL HCL 1 GM TAB PO SCH (09:56)
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
--- NOTE | 2019-03-31 15:05 | Discharge Summary ---
Date of Service March 31, 2019 Admission HPI Per Admitting Provider This is a 73 yo male with PMHx of nonobstructive CAD, PAD s/p left LINING STITCHER endarterectomy, left SFA angioplasty 11/2018, labile hypertension, AAA s/p EVAR 02/2016, measuring 4.4 cm, HLD, iron deficiency anemia, tobacco abuse, smokes 1 pack/day, chronic left lower extremity/back pain. Patient presents after episode of syncope which occurred yesterday at approximately 2-3 PM. Patient last remembers getting up from a recliner in the living room and walking towards his kitchen which is about 30 feet away and then came to while he was on the floor. He is unable to recall how long he was on the floor for. He was able to get up and felt okay other than developing soreness in the right back/flank region. Took some Tylenol last night for pain relief. The patient was home by himself when the event occurred. He notes that a similar event happened about 2.5 weeks ago where he stood up from sitting position and proceeded to pass out on the floor but that time hit his left side, and currently still has a bruise i n that area. His reports that 1 week ago, another similar event occurred, where he was sitting in a chair and all of a sudden his body went limp, his eyes rolled back into his head and he was not responding to her conversation, she proceeded to shake his shoulders a bit and he came to very quickly without any residual symptoms. EKG reviewed showing resting HR of 58 bpm, labs are grossly WNL. Checking echo, carotid Dopplers, consult cardiology. Principal Diagnosis Syncope, orthostatic hypotension, rib fractures, lumbar spine transverse process fractures Discharge Exam Vitals reviewed, orthostatics positive NAD, AAOx3 RRR no mgr, no carotid bruits, no renal bruits or abd bruit noted Lungs with scattered rhonchi and wheezes, breathing unlabored, decreased BS throughout MSK-positive tenderness to palpation over ribs on the left and over lumbar spine Neuro-full strength throughout Ext no edema, 1+ DP pulses bilat Discharge Data Allergies Allergy/AdvReac Type Severity Reaction Status Date / Time No Known Allergies Allergy Verified 04/04/19 11:03 Consultations 03/30/19 13:29 ED Decision to Admit Stat 03/30/19 17:16 Consult Cardiology Routine Consult Case Management - Discharge Planning Routine 03/31/19 15:03 Consult [facility] leasing consultant Routine Procedures Performed Echocardiogram Ordered Studies 03/30/19 12:21 CT abd pelvis IV con only Stat CT head/brain wo con Stat CT lumbar spine wo con Stat 03/30/19 17:16 US carotid doppler BI Routine Hospital Course (1) Syncope: Likely secondary to orthostatic hypotension. Has had several episodes now since starting on tamsulosin about 6 to 8 weeks ago. Prior to that though, he also had some mild orthostasis symptoms and was likely now exacerbated by tamsulosin. He has significant peripheral arterial disease, diabetes, could have autonomic dysfunction -Monitored on telemetry and had no arrhythmias but with bradycardia and orthostasis, carvedilol was reduced to 12.5 mg twice daily -CT head noncontrast negative -Discontinue tamsulosin and watch for urinary retention-none prior to discharge - carotid Dopplers negative, 2D echo negative for significant valvular disease, orthostatic vital signs positive on several occasions -He was treated with IV fluids and chlorthalidone was also discontinued -Added SANJU hose to wear throughout the day at home -Cardiology consulted, appreciate recommendations, will set him up for a 30-day event monitor after discharge as well (2) Peripheral arterial disease: Post left LINING STITCHER endarterectomy, left SFA angioplasty 11/2018 AAA status post EVAR 02/2016--previously followed by vascular surgery at [place] -Follows with Dr. Rowell (3) Iliac artery stenosis, bilateral: As above (4) Labile hypertension: As above, now with orthostasis, need to accept higher blood pressures with sitting to prevent syncope with standing -Discontinue chlorthalidone and tamsulosin -Reduce carvedilol to 12.5 mg twice daily -Started amlodipine 2.5 mg daily as per cardiology recommendation -Continue losartan 50 mg at bedtime -Recommended to follow blood pressures twice daily at home (5) Solitary pulmonary nodule: -Stable, outpatient follow-up (6) Tobacco use disorder: -Cessation of smoking encouraged, patient still smokes 1 PPD (7) Pulmonary emphysema: -Does not require O2 at baseline -Encourage cessation of smoking (8) Dysmetabolic syndrome X: -Continue metformin (9) Type II diabetes mellitus: -Held metformin while here but can restart on discharge Hemoglobin A1c are controlled at 6.2% (10) Fracture, ribs: Secondary to fall -Continue incentive spirometry -Morphine sulfate 4 mg IV administered here and will provide prescription for hydrocodone/APAP upon discharge for as needed use -Tylenol 1000 mg q8h -Continue heat application, Lidoderm OTC patch after discharge (11) Lumbar transverse process fracture: Of the right L1, L2, L3 transverse processes Does not even really has significant pain at the site and is able to ambulate independently No neurological symptoms -PT/OT -Pain control as above -No need for orthopedic consultation as an inpatient as this is a nonsurgical issue (12) CAD (coronary artery disease), elim ira coronary artery: Nonobstructive, no anginal symptoms -Continue aspirin, clopidogrel, atorvastatin (13) DVT prophylaxis: -Continue Plavix, aspirin, added SANJU hose for orthostasis CODE STATUS: DNR Disposition: Stable for discharge to home Total Time Total Time Spent Total Time Spent (In Minutes): 35 minutes Total Time Includes: Examination of the Patient, Discharge Planning and Medication Reconciliation Discharge Plan Discharge Items Patient Disposition: Home - Self-Care Reason For Visit: SYNCOPAL EPISODE Discharge Diagnosis: Syncope from orthostasis, transverse process fractures, rib fractures Condition on Discharge: Good Activity: As commented below Lifting: Gradually increase as tolerated Bathing: No limitations Exercise/Sports: Gradually increase as tolerated Non-emergency contact: Primary Care Provider and Newspaper Manager Call non-emergency contact if: you have any medication questions, your symptoms worsen, your pain is not controlled, your pain is worsening, your pain is unusual for you and your pain is concerning for you Follow-up/Referrals: Lester Babcock MD [Primary Care Provider] - (Please follow up within 1-2 weeks.) Diet: Carb Consistent or DM2 and Heart Healthy Addtl Attending Provider Instructions: You were admitted due to passing out (syncope) which is due to your blood pressure dropping with standing up. This is called orthostasis. It is likely due to dysfunction of the nerves that control the blood vessels in the legs as we discussed in addition to a side effect of certain medications. Your Flomax (tamsulosin) was stopped, and your carvedilol was cut down to 12.5mg twice a day. Your chlorthalidone was also stopped and amlodipine was added for blood pressure. All of these changes to your medications are hopefully going to help keep your blood pressure in a better range (not too high and not too low). If your BP at home is consistently >180 for the top number, please call your doctor. It is important to wear compression stockings during the day to help keep your blood pressure from dropping too low. You should also pump/squeeze your legs together before you stand up. We will also arrange for a 30 day event heart monitor to be sent to your house. You can use hydrocodone as needed and lidocaine patches bought over the counter for your rib pain and back pain. Please follow up with your PCP and Cardiology within 1-2 weeks. Pending Studies at Discharge: No Stand-Alone Forms: My [facility], Smoking Cessation Medications and DC Order Prescriptions: New amlodipine [Norvasc] 5 mg Tablet 2.5 mg PO QAM Qty: 30 RF: 0 hydrocodone-acetaminophen 5-325 mg tablet 1 tab PO Q4 PRN (Reason: pain) Qty: 20 RF: 0 Continued metformin 1,000 mg tablet 500 mg PO BID Qty: 90 RF: 1 colestipol 1 gram tablet See Rx Instructions .ROUTE .COMPLEX Qty: 60 RF: 5 clopidogrel [Plavix] 75 mg tablet 75 mg PO QAM Qty: 90 RF: 1 aspirin [Aspirin Low Dose] 81 mg Tablet,Delayed Release (Dr/Ec) 81 mg PO HS RF: 0 magnesium chloride [Mag 64] 64 mg Tablet,Delayed Release (Dr/Ec) 64 mg PO HS RF: 0 ferrous sulfate 325 mg (65 mg iron) tablet 325 mg PO BID Qty: 30 RF: 0 pantoprazole [Protonix] 40 mg Tablet,Delayed Release (Dr/Ec) 40 mg PO QAM RF: 0 ranitidine HCl 150 mg Tablet 150 mg PO HS RF: 0 Multivitamin 50 Plus Tablet 1 tab PO HS RF: 0 losartan 50 mg Tablet 50 mg PO HS RF: 0 vitamin B complex Tablet 1 tab PO QAM RF: 0 Calcium 600 + D(3) 600 mg calcium- 200 unit Capsule 1 cap PO BID RF: 0 Changed carvedilol 25 mg tablet 12.5 mg PO BID Qty: 180 RF: 3 Discontinued chlorthalidone 25 mg Tablet 25 mg PO QAM RF: 0 tamsulosin [Flomax] 0.4 mg capsule 0.4 mg PO QAM RF: 0 No Action atorvastatin 40 mg tablet 40 mg PO HS Qty: 90 RF: 3 (DME) Incentive Spirometer Misc See Rx Instructions .ROUTE .MEDSUPPLY Qty: 1 RF: 0 Discharge Orders: Discharge Order (Routine); Ordered 03/31/19 Ordered By: Vero Doran Admission Data Admit Date/Time: 03/30/19 14:15 Attending Provider: Vero Doran Admit Provider: Vero Doran Primary Care Provider: Lester Babcock Other Providers: Vero Doran ; Jeffrey White Other Interventions: Discharge Summary Assessment (RN) Last Done: 03/31/19 15:08 DC Date/Time DO NOT enter until pt leaves facility: 03/31/19 15:28
[2019-03-31] MEDS ORDERED: carvediloL 12.5 MG TAB PO SCH (17:00)
[2019-04-01] MEDS ORDERED: AMLODIPINE BESYLATE 5 MG TAB PO SCH (09:00)
--- NOTE | 2019-04-02 10:47 | XCELERA ---
[id number] \\[email or web address]\[id number]_[email or web address]\[id number]
== END 2019-03-31 15:28 | disposition home or self-care (01) | DRG 312 ==
LOC: ED 10:41 → 2N 14:15

== ENCOUNTER 2020-07-03 11:32 | Observation (INO) ==
[2020-07-03] MEDS ORDERED: SODIUM CHLORIDE 0.9% 1000ML 1,000 ML IV STA (11:45)
[2020-07-03] MEDS ORDERED: MoRPHine SULFATE 4 MG/ML 1 ML CARP\\VIAL IV PRN (12:03)
[2020-07-03] MEDS ORDERED: ONDANSETRON INJ 2 MG/ML 2 ML VIAL IV STA (12:03)
[2020-07-03 12:26] LABS: iSTAT Creatinine 0.9 mg/dl (0.6-1.3); iSTAT Hemoglobin 9.9 g/dl (14.0-18.0); iSTAT Ionized Calcium 1.16 mmol/l (1.12-1.32); iSTAT Potassium 3.9 mmol/L (3.3-5.0)
[2020-07-03 12:26] LABS: Basophils # (auto) 0.01 K/uL (0-0.2); Basophils % (auto) 0.2 %; Eosinophils # (auto) 0.03 K/uL (0-0.5); Eosinophils % (auto) 0.6 %; Hematocrit (blood only) 30.5 % (42-52); Hemoglobin 10.3 g/dL (14.0-18.0); Immature Granulocytes # (auto) 0.01 K/uL (0.00-0.02); Immature Granulocytes % (auto) 0.2 %; Lymphocytes # (auto) 0.54 K/uL (1.2-3.4); Lymphocytes % (auto) 11.2 %; Mean Corpuscular Hemoglobin 33.9 pg (25-34); Mean Corpuscular Hgb Conc 33.8 g/dL (32-36); Mean Corpuscular Volume 100.3 fL (80-100); Mean Platelet Volume 10.3 fL (7.4-10.4); Monocytes # (auto) 0.18 K/uL (0.11-0.59); Monocytes % (auto) 3.7 %; Neutrophils # (auto) 4.07 K/uL (1.4-6.5); Neutrophils % (auto) 84.1 %; Platelet Count 197 K/uL (130-400); RDW Standard Deviation 54.3 fL (36.4-46.3); Red Blood Count 3.04 M/uL (4.7-6.1); White Blood Count 4.84 K/uL (4.8-10.8)
[2020-07-03] MEDS ORDERED: OPTIRAY 320 100ml IV ONE (12:31)
[2020-07-03 12:38] LABS: INR 1.1 (0.9-1.1); Partial Thromboplastin Ratio 1.1; Partial Thromboplastin Time 28.2 Seconds (21.0-31.0); Prothrombin Time 11.2 Seconds (9.0-12.0)
[2020-07-03 12:44] LABS: Alanine Aminotransferase 14 U/L (12-78); Albumin Level 2.9 gm/dl (3.4-5.0); Aspartate Aminotransferase 14 U/L (15-37); BUN Creatinine Ratio 10.7 (10-20); Blood Urea Nitrogen 9 mg/dl (7-18); Calcium 8.7 mg/dl (8.5-10.1); Carbon Dioxide 26 mmol/L (21-32); Chloride 112 mmol/L (98-107); Est GFR (African American) 99.5; Est GFR (Non-African American) 85.8; Glucose 129 mg/dl (70-99); Lipase 59 U/L (73-393); Potassium 3.9 mmol/L (3.5-5.1); Sodium 142 mmol/L (136-145)
--- NOTE | 2020-07-03 12:46 | CT Scan Report ---
CT SCAN OF THE ABDOMEN AND PELVIS WITH IV CONTRAST CLINICAL HISTORY: Generalized abdominal pain. Gastroesophageal carcinoma. COMPARISON STUDY: Abdominal CT dated 03/30/2019. PET CT dated 03/12/2020. TECHNIQUE: Following the IV administration of 94 cc of Optiray 320, CT scan of the abdomen and pelvi s is performed from the lung bases to the proximal femora. Images are reviewed in the axial, sagittal , and coronal planes. IV contrast was administered without complication. A dose lowering technique wa s utilized adhering to the principles of ALARA. CT DOSE: 277.71 mGy.cm FINDINGS: Lung bases: The heart is top normal in size and without pericardial effusion. The coronary arteries a re densely calcified. There is a small hiatal hernia. There are small to moderate bilateral pleural e ffusions with associated bibasilar consolidation. These are new from 03/12/2020. . Liver: The contrast-enhanced liver is normal in size, contour, and attenuation. There is mild intrahe patic biliary ductal dilatation. The hepatic veins and portal veins are patent. There are least 6 low attenuation hepatic lesions measuring up to 2.2 cm. This is highly concerning for metastatic disease . Gallbladder: Surgically absent noting clips in the gallbladder fossa. Spleen: Normal in size and attenuation. Pancreas: Moderately atrophic and grossly unremarkable. Adrenal glands: Unremarkable. Kidneys: The contrast enhanced kidneys demonstrate cortical atrophy and are without hydronephrosis. T he kidneys enhance symmetrically. Abdominal vasculature: There is advanced atherosclerotic calcification of the abdominal aorta. The pa tient is status post aortobiiliac stent graft repair of an infrarenal abdominal aortic aneurysm. The residual aneurysm sac measures up to 4.6 cm. Bowel: There is moderate to advanced colonic diverticulosis without CT evidence of acute diverticulit is. No bowel obstruction is seen. There is mild wall thickening and edema seen throughout the colon w ith associated pericolonic infiltration. The appearance is consistent with a nonspecific pancolitis. The appendix is well-visualized and normal. Peritoneum: There is no intraperitoneal free air or abdominal ascites. Lymphadenopathy: None. Pelvic viscera: The bladder, prostate, and seminal vesicles are normal as visualized. Skeletal structures: The skeletal structures are osteopenic. There is evidence of multifocal osteobla stic metastatic disease. This has progressed as compared to 03/12/2020. Large lesions are identified within the body of L5, the right sacrum, and the right iliac wing. Additional smaller lesions are see n within the sacrum, the left iliac wing, and the right acetabulum. IMPRESSION: 1. Findings are consistent with a nonspecific pancolitis, likely on an infectious or inflammatory bas is. Clinical correlation will be required. 2. There are small to moderate pleural effusions with bibasilar consolidation. This is new from 03/12. 3. 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 4. There are numerous low-attenuation hepatic lesions, also likely representing metastatic disease. 5. Moderate to advanced colonic diverticulosis without CT evidence of acute diverticulitis. 6. Additional findings as above. ACT 112: Negative or not required by law. Electronically signed by: Zan Forte M.D. 07/03/2020 12:45 PM
[2020-07-03 12:49] LABS: Albumin Globulin Ratio 0.9 (0.9-2); Alkaline Phosphatase 120 U/L (45-117); Bilirubin,Total 0.5 mg/dl (0.2-1); Globulin 3.4 gm/dl (2.5-4.0); Total Protein 6.3 gm/dl (6.4-8.2); Troponin I < 0.015 ng/ml (0-0.045)
--- NOTE | 2020-07-03 13:13 | XRay Report ---
XR chest 1V portable HISTORY: 74 years-old Male pain acute atypical chest pain COMPARISON: CT abdomen and pelvis of same day, chest radiograph 07/02/2020 TECHNIQUE: Portable AP view of the chest FINDINGS: Cardiac silhouette is moderately enlarged. Calcified plaque of the thoracic aorta. Layering pleural e ffusions with bibasilar consolidation. Emphysema. Mildly progressed interstitial opacities. Left IJ I [id number]-[id number] catheter is in unchanged positioning. No pneumothorax. Questioned 10 mm nodular density of the left upper lung is favored to represent summation density. Degenerative changes of the shoulde rs and spine. Multifocal skeletal lesions are better characterized on comparison CT of same day. Endo graft of the abdominal aorta. IMPRESSION: 1. Layering pleural effusions with bibasilar opacities suggestive of compressive atelectasis. Pneumon ia considered less likely. 2. Emphysema and chronic interstitial coarsening. 3. Cardiomegaly with pulmonary vascular congestion. ACT 112: Negative or not required by law. The above report was generated using voice recognition software. It may contain grammatical, syntax o r spelling errors. Electronically signed by: Chepe Jay M.D. 07/03/2020 1:11 PM
--- NOTE | 2020-07-03 13:26 | Emergency Department Note ---
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 Negative or not required by law. Electronically signed by: Zan Forte M.D. 07/03/2020 12:45 PM Dictated: 07/03/20 1233 Transcribed: 07/03/20 1233 Discharge Plan Visit Data Chief Complaint: Abdominal Pain Stated Complaint: abd pain, dr rodriguez sent ED Provider: Franck Jung Discharge Problem: Abdominal pain, Carcinoma of distal third of esophagus, Pain from bone metastases, Anemia, Pancolitis Patient Disposition: Being Evaluated by Hospitalist Condition: Good Forms Stand Alone Forms: My [facility] [employer] Prescriptions Prescriptions: No Action oxycodone 5 mg tablet 5 mg PO Q4H PRN (Reason: pain) RF: 0 docusate sodium [Colace] 100 mg capsule 100 mg PO BID RF: 0 fentanyl 50 mcg/hr patch 72 hour 1 patch transdermal Q72H RF: 0 sucralfate [Carafate] 1 gram tablet 1 g PO Q6H Qty: 120 RF: 4 finasteride 5 mg tablet 5 mg PO QAM Qty: 30 RF: 5 escitalopram oxalate 10 mg tablet 10 mg PO QAM Qty: 30 RF: 5 tamsulosin 0.4 mg capsule 0.4 mg PO PM Qty: 30 RF: 5 metformin 1,000 mg tablet 500 mg PO BID Qty: 90 RF: 1 ferrous sulfate 325 mg (65 mg iron) tablet 325 mg PO QAM RF: 0 aspirin [Aspirin Low Dose] 81 mg Tablet,Delayed Release (Dr/Ec) 81 mg PO HS RF: 0 magnesium chloride [Mag 64] 64 mg Tablet,Delayed Release (Dr/Ec) 64 mg PO HS RF: 0 Multivitamin 50 Plus Tablet 1 tab PO HS RF: 0 vitamin B complex Tablet 1 tab PO QAM RF: 0 Calcium 600 + D(3) 600 mg calcium- 200 unit Capsule 1 cap PO BID RF: 0 clopidogrel 75 mg tablet 75 mg PO QAM RF: 0 colestipol 1 gram tablet 1 g PO BID RF: 0 carvedilol 25 mg tablet 12.5 mg PO QPM RF: 0 losartan 25 mg Tablet 25 mg PO PM RF: 0 carvedilol 25 mg tablet 25 mg PO QAM RF: 0 pantoprazole 40 mg tablet,delayed release (DR/EC) 40 mg PO BID RF: 0 Referrals Referrals: Lester Babcock MD [Primary Care Provider] - Discharge Problem: Abdominal pain Qualifiers: Abdominal location: lower abdomen, unspecified Qualified Code(s): R10.30 - Lower abdominal pain, unspecified Anemia Qualifiers: Anemia type: unspecified type Qualified Code(s): D64.9 - Anemia, unspecified
[2020-07-03 14:26] LABS: Appearance Urine Clear (Clear); Bilirubin Urine Negative (Negative); Blood Urine Negative (Negative); Color Urine Yellow; Glucose Urine UA Negative (Negative); Ketones Urine Trace (Negative); Leukocyte Esterase Urine Negative (Negative); Nitrite Urine Negative (Negative); Protein Urine Negative (Negative); Specific Gravity Urine 1.039 (1.000-1.030); Urobilinogen Urine Negative (Negative); pH Urine 6.5 (4.5-7.5)
[2020-07-03] MEDS ORDERED: FUROSEMIDE 40 MG/4 ML VIAL IV STA (15:56)
[2020-07-03] MEDS ORDERED: PIPERACILL/TAZOBAC CONSULT ACTIVE PRN (16:59)
[2020-07-03] MEDS ORDERED: PIPERACILLIN/TAZOBACTAM 3.375 GM in DEXTROSE 5% 100 ML IV SCH (17:00)
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
[2020-07-03] MEDS ORDERED: GLUCOSE 40% GEL 15 GM TUBE PO PRN (18:15)
[2020-07-03] MEDS ORDERED: GLUCAGON FOR INJ 1 MG VIAL SQ PRN (18:15)
[2020-07-03] MEDS ORDERED: CARBOHYDRATES FOR HYPOGLYCEMIA PO PRN (18:15)
[2020-07-03] MEDS ORDERED: GLUCOSE 10 TABS/TUBE PO PRN (18:15)
[2020-07-03] MEDS ORDERED: ACETAMINOPHEN 325 MG TAB PO PRN (18:15)
[2020-07-03] MEDS ORDERED: ONDANSETRON INJ 2 MG/ML 2 ML VIAL IV PRN (18:15)
[2020-07-03] MEDS ORDERED: MoRPHine SULFATE 2 MG/ML CARP IV PRN (18:15)
[2020-07-03] MEDS ORDERED: DEXTROSE 50% 50 ML SYRINGE IV PRN (18:15)
[2020-07-03] MEDS ORDERED: PIPERACILLIN/TAZOBACTAM 3.375 GM in DEXTROSE 5% 100 ML IV ONE (19:15)
[2020-07-03] MEDS ORDERED: Nursing to Pharmacy Communication ONE (20:16)
[2020-07-03] MEDS ORDERED: carvediloL 12.5 MG TAB PO SCH (21:00)
[2020-07-03] MEDS ORDERED: MAGNESIUM CHLORIDE 64MG DELAYED REL TAB PO SCH (21:00)
[2020-07-03] MEDS ORDERED: fentaNYL 50 MCG/HR TDSY TD SCH (21:00)
[2020-07-03] MEDS ORDERED: TAMSULOSIN HCL 0.4 MG CAP PO SCH (21:00)
[2020-07-03] MEDS ORDERED: ASPIRIN 81 MG ECTAB PO SCH (21:00)
[2020-07-03] MEDS: SUCRALFATE 1 GM TAB PO SCH (21:58)
[2020-07-03] MEDS: PANTOprazole 40 MG TAB PO SCH (21:58)
[2020-07-03] MEDS: COLESTIPOL HCL 1 GM TAB PO SCH (22:00)
[2020-07-03] MEDS: HEPARIN SOD 5,000 UNIT/0.5 ML VIAL SQ SCH (22:04)
[2020-07-03] MEDS: INSULIN ASPART 100 UNITS/ML 3 ML PEN SC SCH (22:08)
[2020-07-03] MEDS: PIPERACILLIN/TAZOBACTAM 3.375 GM in DEXTROSE 5% 100 ML IV SCH (23:13)
[2020-07-03] MEDS: CHECK fentaNYL PATCH PLACEMENT SCH (23:13)
[2020-07-04 03:35] VITALS: TEMP 98.1
[2020-07-04] MEDS: SUCRALFATE 1 GM TAB PO SCH ×2 (04:54→12:15)
[2020-07-04 07:25] LABS: Basophils # (auto) 0.01 K/uL (0-0.2); Basophils % (auto) 0.2 %; Eosinophils % (auto) 4.4 %; Hemoglobin 10.4 g/dL (14.0-18.0); Lymphocytes # (auto) 0.61 K/uL (1.2-3.4); Lymphocytes % (auto) 13.3 %; Mean Corpuscular Hgb Conc 33.5 g/dL (32-36); Mean Corpuscular Volume 101.3 fL (80-100); Mean Platelet Volume 10.3 fL (7.4-10.4); Monocytes # (auto) 0.51 K/uL (0.11-0.59); Monocytes % (auto) 11.1 %; Neutrophils # (auto) 3.26 K/uL (1.4-6.5); Platelet Count 191 K/uL (130-400); RDW Coefficient of Variation 15.4 % (11.5-14.5); RDW Standard Deviation 56.2 fL (36.4-46.3); Red Blood Count 3.06 M/uL (4.7-6.1); White Blood Count 4.59 K/uL (4.8-10.8)
[2020-07-04] MEDS: PIPERACILLIN/TAZOBACTAM 3.375 GM in DEXTROSE 5% 100 ML IV SCH (07:36)
[2020-07-04] MEDS: PANTOprazole 40 MG TAB PO SCH (07:37)
[2020-07-04 07:59] LABS: Albumin Level 2.8 gm/dl (3.4-5.0); BUN Creatinine Ratio 8.6 (10-20); Creatinine Clr Calc Pharmacy 60.6 ml/min; Est GFR (African American) 81.6; Est GFR (Non-African American) 70.4; Potassium 3.9 mmol/L (3.5-5.1)
[2020-07-04 08:01] LABS: Albumin Globulin Ratio 0.9 (0.9-2); Bilirubin,Total 0.7 mg/dl (0.2-1); Globulin 3.2 gm/dl (2.5-4.0)
[2020-07-04] MEDS: INSULIN ASPART 100 UNITS/ML 3 ML PEN SC SCH ×2 (08:53→12:17)
[2020-07-04] MEDS: HEPARIN SOD 5,000 UNIT/0.5 ML VIAL SQ SCH (08:54)
[2020-07-04] MEDS: CHECK fentaNYL PATCH PLACEMENT SCH (08:54)
[2020-07-04] MEDS ORDERED: carvediloL 25 MG TAB PO SCH (09:00)
[2020-07-04] MEDS ORDERED: ESCITALOPRAM OXALATE 10 MG TAB PO SCH (09:00)
[2020-07-04] MEDS ORDERED: FINASTERIDE 5 MG TAB PO SCH (09:00)
[2020-07-04] MEDS ORDERED: CLOPIDOGREL BISULFATE 75 MG TAB PO SCH (09:00)
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
[2020-07-04] MEDS: COLESTIPOL HCL 1 GM TAB PO SCH (10:55)
[2020-07-04 11:22] VITALS: BP 170/76
[2020-07-04] MEDS ORDERED: HEPARIN 100 UNIT/ML 5ML FLUSH ONE (11:46)
--- NOTE | 2020-07-04 12:53 | Electrocardiogram Report ---
Test Reason : Blood Pressure : / mmHG Vent. Rate : 065 BPM Atrial Rate : 065 BPM P-R Int : 160 ms QRS Dur : 080 ms QT Int : 436 ms P-R-T Axes : 070 -26 039 degrees QTc Int : 453 ms Normal sinus rhythm Possible Left atrial enlargement Borderline ECG When compared with ECG of 30-MAR-2019 11:54, No significant change Confirmed by Carlyle Ibarra ([id number]) on 07/04/2020 12:53:12 PM Referred By: Confirmed By:Carlyle Ibarra
--- NOTE | 2020-07-04 13:11 | Discharge Summary ---
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 Also complains of dyspnea 2 days ago around bedtime which resolved with rest. Denies fevers, chills, vomiting, chest pain. Of note, patient had his fourth of 4 chemotherapy rounds completed last Tuesday. Saw cardiology outpatient yesterday for complaints of dyspnea and was started on Lasix 20 p.o. as needed for weight gain and dyspnea. In the ER patient was noted to be hypoxic to 90% on room air which quickly resolved with 2 L nasal cannula. Was found to be afebrile and normotensive, nontachycardic, nontachypneic. CTAP showed known metastases as well as nonspecific pancolitis, inflammation versus infection. Chest x-ray and CTAP showed mild bilateral pleural effusions that were not previously noted on imaging in March 2020. Patient was given morphine 4 mg IV with significant improvement in pain. Hospitalist service was consulted for admission. On my interview patient reports that his pain is significantly improved though still present in the lower quadrants after receiving morphine. Feels comfortable on 2LNC. Reports several "blow outs" of diarrhea over the last several days. His appetite was not good today, however has been at his baseline (which admittedly has decreased in the last 5 months due to cancer). Admission Exam Per Admitting Provider Constitutional: well developed and + thin; no acute distress Eyes: PERRL, conjunctivae normal, anicteric sclerae ENMT: external ear and nose normal, oropharynx normal Neck: normal visual inspection Respiratory: normal respiratory effort; no respiratory distress Auscultation: + crackles (bibasilar) and + wheezes (intermittent, expiratory) Cardiovascular: RRR, no murmur, no edema Gastrointestinal (Abdomen): normal bowel sounds, soft, nontender, no hepatosplenomegaly Musculoskeletal: no cyanosis or clubbing, extremities motor strength 5/5 Skin: no rashes, warm and dry Neurologic: AAOx3, normal speech. Bilateral UE, LE, and face without sensory or motor deficits. Moves all limbs equally Psychiatric: A+Ox3, euthymic affect Principal Diagnosis pancolitis Discharge Exam Constitutional well developed and + thin; no acute distress Respiratory normal respiratory effort; no respiratory distress Auscultation: + wheezes (intermittent, expiratory); no crackles Cardiovascular RRR, no murmur, no edema Gastrointestinal (Abdomen) normal bowel sounds, soft, nontender, no hepatosplenomegaly Skin no rashes, warm and dry Psychiatric A+Ox3, euthymic affect Discharge Data Allergies Allergy/AdvReac Type Severity Reaction Status Date / Time No Known Drug Allergies Allergy Verified 07/03/20 13:46 Consultations 07/03/20 15:07 ED Decision to Admit Stat 07/04/20 08:30 Consult Gastroenterology Routine Ordered Studies 07/03/20 11:45 CT abd pelvis IV con only Stat 1. Findings are consistent with a nonspecific pancolitis, likely on an infectious or inflammatory basis. Clinical correlation will be required. 2. There are small to moderate pleural effusions with bibasilar consolidation. This is new from 03/12/2020. 3. 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 4. There are numerous low-attenuation hepatic lesions, also likely representing metastatic disease. 5. Moderate to advanced colonic diverticulosis without CT evidence of acute diverticulitis. 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 Pancolitis: -CTAP this admission showed nonspecific pancolitis, infection versus inflammation. -Patient admitted to several episodes of diarrhea, did order C. diff testing however due to no BM overnight did not collect test prior to discharge. Highly unlikely given no continued diarrhea. - Initially started on Zosyn, transitioned to Augmentin BID for total of 10 days of antibiotic therapy. -GI consulted and appreciate recommendations: patient will follow with Dr. Blanco in outpatient setting for follow up and possibly for colonoscopy at a later date. -Patient tolerated low fiber diet well and was stable for discharge. Acute hypoxic respiratory failure: -On arrival with hypoxia to 90%, does not use inhalers at home but does have COPD listed on medical history. Does not have a baseline oxygen requirement. -CTAP and CXR show mild bilateral pleural effusions, with findings suggestive of fluid overload on exam. -Most recent echo in May of this year with normal EF, no right-sided failure, grade 1 diastolic dysfunction. -proBNP 1135. -COVID 19 testing negative. -able to be weaned off of supplemental O2 and was saturating to 94% on room air on discharge. Acute Diastolic CHF -Lasix 40 mg IV x1 given with improvement in hypoxia, -Fluid overload was suspected to be due to chemo infusion. -Can continue Lasix 20mg PRN prescribed by cardiology as needed for weight gain >3 lbs. Metastatic esophageal cancer: -Follows with Dr. Chen with [facility]. -Recently completed his fourth of 4 rounds of chemotherapy. -Has PET scan scheduled on Tuesday. -In discussion with the patient and his , discussion between them has been that if this chemotherapy did not provide any benefit to prolong his life, then they would likely consider discontinuation of treatment. Patient's reports that they have not discussed palliative care in the past but that the patient is DNR/DNI. Did offer to discuss this more with her, she reports she will think about it. -Continue home fentanyl patches, with oxycodone prn breakthrough pain. Severe protein calorie malnutrition: -With several months of poor p.o. intake per , low albumin on lab work. - Low fiber diet given pancolitis, may benefit from Boost at home. Anemia: -History of mildly macrocytic anemia, on daily iron supplement, multivitamin, and B complex. Continue these. GERD: History of, with known Manley's esophagus. Continue home PPI and Carafate. CAD: History of, on medical therapy and follows with Dr. Rowell. Continue aspirin, Plavix, carvedilol, BP control, colestipol. DM2: History of, on Metformin therapy at home. HTN: History of. Normotensive, continue home blood pressure medications. Hyperlipidemia: History of, continue colestipol. Total Time Total Time Spent Total Time Spent (In Minutes): see attending attestation Discharge Plan Discharge Items Patient Disposition: Home - Self-Care Reason For Visit: PANCOLITIS Discharge Diagnosis: pancolitis Condition on Discharge: Good Activity: Per Instructions section Non-emergency contact: Primary Care Provider, Service Station Cashier and Oncologist Call non-emergency contact if: you have any medication questions, your symptoms worsen and your temperature is above 101 Follow-up/Referrals: Lester Babcock MD [Primary Care Provider] - 07/10/20 11:00 am (Your appointment is with the doctor's physician speech and language assistant, Inez Kang at the [facility]. If you have any questions or need to change this appointment, please call [phone].) Simon Blanco DO [Physician] - Bob Chen MD [Surgeon] - Diet: Heart Healthy and Low Fiber Addtl Attending Provider Instructions: You were admitted to the hospital for an infection of your colon called colitis. It is unclear what bacteria caused this infection, however you were at risk for an infection due to your cat scan showing diverticulosis, or outpouchings of the gut that can get infected. You were started on IV antibiotics and you improved very quickly. We were able to transition you to oral antibiotics, which you will continue at home. We sent an antibiotic called Augmentin to the [facility]. You will take one pill every 12 hours with a glass of water and at least a snack, starting with dinnertime today. You should take that until all of the pills are gone, another 9 days. I have attached a list of foods to avoid, but try to pick bland foods that are light on the stomach over the next few days. You should have follow up with Dr. Babcock in the next week or so to go over your hospitalization. You should also have follow up at a later date with Dr. Blanco and Dr. Chen. I have provided all of their numbers on this paperwork. Pending Studies at Discharge: No Stand-Alone Forms: My [facility], Smoking Cessation Medications and DC Order Prescriptions: New amoxicillin-pot clavulanate [Augmentin] 875-125 mg tablet 1 tab PO BID 9 Days Qty: 18 RF: 0 Continued oxycodone 5 mg tablet 5 mg PO Q4H PRN (Reason: pain) RF: 0 docusate sodium [Colace] 100 mg capsule 100 mg PO BID RF: 0 fentanyl 50 mcg/hr patch 72 hour 1 patch transdermal Q72H RF: 0 sucralfate [Carafate] 1 gram tablet 1 g PO Q6H Qty: 120 RF: 4 finasteride 5 mg tablet 5 mg PO QAM Qty: 30 RF: 5 escitalopram oxalate 10 mg tablet 10 mg PO QAM Qty: 30 RF: 5 tamsulosin 0.4 mg capsule 0.4 mg PO PM Qty: 30 RF: 5 metformin 1,000 mg tablet 500 mg PO BID Qty: 90 RF: 1 ferrous sulfate 325 mg (65 mg iron) tablet 325 mg PO QAM RF: 0 aspirin [Aspirin Low Dose] 81 mg Tablet,Delayed Release (Dr/Ec) 81 mg PO HS RF: 0 magnesium chloride [Mag 64] 64 mg Tablet,Delayed Release (Dr/Ec) 64 mg PO HS RF: 0 Multivitamin 50 Plus Tablet 1 tab PO HS RF: 0 vitamin B complex Tablet 1 tab PO QAM RF: 0 Calcium 600 + D(3) 600 mg calcium- 200 unit Capsule 1 cap PO BID RF: 0 clopidogrel 75 mg tablet 75 mg PO QAM RF: 0 colestipol 1 gram tablet 1 g PO BID RF: 0 carvedilol 25 mg tablet 12.5 mg PO QPM RF: 0 losartan 25 mg Tablet 25 mg PO PM RF: 0 carvedilol 25 mg tablet 25 mg PO QAM RF: 0 pantoprazole 40 mg tablet,delayed release (DR/EC) 40 mg PO BID RF: 0 Discharge Orders: Discharge Order (Routine); Ordered 07/04/20 Ordered By: Bre Paris/Other Patient Handouts: ED Diet, [place] (Adult) Admission Data Admit Date/Time: 07/03/20 16:59 Attending Provider: Jojo Fnin Admit Provider: Bre Bliss Primary Care Provider: Lester Babcock Other Providers: Jojo Finn ; Simon Blanco Other Interventions: Discharge Summary Assessment (RN) Last Done: 07/04/20 13:59 Supervising Physician Co-Signing Physician Notes Resident Physician Supervision Note: I independently interviewed and examined the patient and verified the genao history and physical, reviewed labs and image studies, discussed the case with the resident Dr. Bliss and agree with the findings and care plan. Resident Activity Tracking Resident Involvement: Resident Care Provided Care Provided: Adult [facility]
[2020-07-04 14:01] VITALS: PULSE 60; O2SAT 92
[2020-07-04] MEDS ORDERED: fentaNYL 50 MCG/HR TDSY TD SCH (18:00)
[2020-07-05] MEDS ORDERED: fentaNYL 50 MCG/HR TDSY TD SCH (17:00)
== END 2020-07-04 14:35 | disposition home or self-care (01) ==
LOC: ED 11:32 → 2N 16:59 → INTOOBSV 16:59 → 2N 17:45